=== PATIENT | female | born 1980 | race Caucasian/White ===

== ENCOUNTER 2019-11-19 14:08 | Outpatient (CLI) | payer OTHER, SELFPAY ==
--- NOTE | ~2019-11-19 | CT_ITS ---
EXAMINATION: CT abdomen pelvis w con DATE: 11/19/2019 14:57 INDICATION: Low abdominal pain. TECHNIQUE: Computed tomography (CT) of the abdomen and pelvis was performed with 100 mL Omnipaque 350 intravenous contrast. Automated exposure control and iterative reconstruction technique were employe d. The dose-length product was 1515.80 mGy-cm. COMPARISON: None. FINDINGS: The visualized portions of the lung bases are clear without pneumonia or pleural effusion. The heart size is normal. No pericardial effusion. The liver is normal. There are changes of cholecys tectomy. The spleen, pancreas, adrenal glands, and right kidney are normal. There is a 4 mm cyst in l eft kidney. There is a 3 mm stone in left kidney. 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 There are no dilated loops of bowel. The appendix is normal. There is trace pelvic ascites. Ther e are no pathologically enlarged lymph nodes. There is mild thoracic and lumbar spondylosis. IMPRESSION: 1. 3 mm nonobstructing left kidney stone. 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
== END 2019-11-19 14:09 | disposition home or self-care (01) ==
LOC: CHSIMG 14:10
PROVIDERS: PCP Family Medicine; Visit Provider Nurse Practitioner Family
DX: R10.9 Unspecified abdominal pain (principal)
CPT/HCPCS: 74177; Q9965

== ENCOUNTER 2019-11-21 01:55 | Day surgery (SDC) | payer OTHER, SELFPAY ==
[2019-11-14 09:52] VITALS: BMI 43.5
--- NOTE | 2019-11-19 10:23 | PM.IMHP ---
H&P: HPI History of Present Illness Chief complaint: pelvic pain Narrative: Yadira Phillip is a 39 year old female Status post hysterectomy and bilateral salpingectomy who is admitted for diagnostic laparoscopy. She has: 6 was then from hysterectomy and she has had pain when she has sex. She underwent an ultrasound which shows thick wall bowel adhesion to the vaginal cough but neither ovary could be seen. There was of free fluid well in light of her severe pelvic pain she has a laparoscopy and possible lysis adhesions. Risks and benefits were reviewed including but not exclusive of , aspiration Roller, bleeding transfusion, perforation to bowel, bladder, ureters, or other internal organs with need for open laparotomy. She was could her standing. She had all questions answered. She read the [employer] handout entitled laparoscopy. She asked to proceed. Review of Systems Review of Systems: All systems reviewed & are unremarkable except as noted in HPI and below PMFSH Family History Family History Father Hypertension Patient's father is in good health Family history of diabetes mellitus in first degree relative Mother Patient's mother is in good health Family history of gallbladder disease Sibling Patient's brother is in good health Grandparent Family history of malignant neoplasm of stomach Carcinoma of colon Other Asthma Family history of eczema Family history of malignant neoplasm of brain Family history of migraine headaches Social History Social History Alcohol intake: never Meds Home Medications and Allergies Home Medications Medication Instructions Recorded Confirmed Type citalopram 20 mg PO QPM 11/14/19 11/14/19 History hydrocodone-acetaminophen 1 tablet PO Q6H PRN 11/14/19 11/14/19 History levothyroxine 88 mcg PO QPM 11/14/19 11/14/19 History Allergies Allergy/AdvReac Type Severity Reaction Status Date / Time SKIN GLUE Allergy SKIN Uncoded 11/14/19 09:54 IRRITATION Exam Const: General: no acute distress Eyes: General: appearance normal, both eyes and all related structures Neck: Neck: supple and no JVD Thyroid: thyroid normal Resp: Effort & Inspection: normal respiratory effort Auscultation: clear to auscultation bilaterally Cardio: Rate: regular rate Rhythm: regular rhythm GI: Inspection: non-distended GI Palp: Yes Soft to palpation, No Tenderness to palpation present (GI) and No Guarding due to palpation present (GI) Auscultation: normal bowel sounds : General: Yes bladder normal to inspection External Female Exam: normal external appearance Speculum Exam - Cervix: Cervix absent Bimanual exam- vagina & uterus: uterus absent Bimanual Exam- Adnexa, other: tender Skin: General skin exam: no rashes or lesions noted Extrem: General: normal to inspection and no edema Psych: Mental Status: mental status grossly normal Affect: normal affect Assessment and Plan Additional Plan Impression: Pelvic pain of unknown cause Plan: Diagnostic laparoscopy
[2019-11-21] VITALS (7 sets, daily range): BP systolic 105–126; BP diastolic 60–86; PULSE 59–80; RESP 14–20; TEMP 36.1–36.6; O2SAT 92–99
[2019-11-21] MEDS: LACTATED RINGERS 1,000 ML 30 ML IV CONT ×2 (07:00→09:37)
--- NOTE | 2019-11-21 07:02 | WPDHPUPDATE1 ---
History and Physical Update Update Date/Time: 11/21/19 07:02 History and Physical has been reviewed, including an updated exam of the patient. There are NO changes in the patient's condition. Risks, benefits, and alternatives have been discussed and questions answered. Patient agrees to proceed with procedure.
--- NOTE | 2019-11-21 08:12 | P.PNAN_ITS ---
Anes - Initial Pre Proc Eval Procedure: Operation Date: 11/21/19 08:30 Proposed Procedures p Diagnostic Laparoscopy - Bjorn Cardenas MD Date/Time: 11/21/19 08:12 Surgeon: Bjorn Cardenas MD Pre Op Diagnosis: pelvic pain Patient Data Age: 39 Gender: F Height: 5 ft 6 in Weight: 123 kg Last Vital Signs Temp 36.6 C 11/21/19 07:00 Pulse 80 11/21/19 07:00 Resp 18 11/21/19 07:00 BP 123/76 11/21/19 07:00 Pulse Ox 99 11/21/19 07:00 Allergies Allergy/AdvReac Type Severity Reaction Status Date / Time SKIN GLUE Allergy SKIN Uncoded 11/21/19 07:35 IRRITATION Home Medications Medication Instructions Recorded Confirmed Type citalopram 20 mg PO QPM 11/14/19 11/14/19 History hydrocodone-acetaminophen 1 tablet PO Q6H PRN 11/14/19 11/14/19 History levothyroxine 88 mcg PO QPM 11/14/19 11/14/19 History hydrocodone-acetaminophen [[place]] 1 tablet PO Q4H PRN #30 tablet 11/21/19 Rx Patient hx anesthesia problems: none and other (slow to awaken) Family hx anesthesia problems: none PMFSH Past Medical History Medical History Hypothyroid Morbid obesity Family History Family History Father Hypertension Patient's father is in good health Family history of diabetes mellitus in first degree relative Mother Patient's mother is in good health Family history of gallbladder disease Sibling Patient's brother is in good health Grandparent Family history of malignant neoplasm of stomach Carcinoma of colon Other Asthma Family history of eczema Family history of malignant neoplasm of brain Family history of migraine headaches Social History Social History Alcohol intake: never Anes - Eval Final PreProcedure Day of Procedure 11/21/19 08:12 Patient weight: morbidly obese Heart: regular rate and rhythm Lungs: clear to auscultation Airway: Mallampati scale class II Neurological: alert and oriented Last oral intake: >/= 8 hours ASA classification: III Emergent: no Anesthetic plan: proceed Anesthesia type and monitoring: general ETT and standard monitoring Informed Consent: The patient's anesthetic plan and its attendant risks and benefits were discussed with the patient/family/POA. Questions were solicited and answers provided to the satisfaction of the patient/family/POA.
--- NOTE | 2019-11-21 09:23 | PM.PROC ---
Procedure Note - Detailed Date of procedure: 11/21/19 Pre-op diagnosis: pelvic pain Surgeon: Bjorn Cardenas MD Postop diagnosis: Endometriosis, pelvic pain pelvic adhesions vaginal last Procedure: Diagnostic laparoscopy, destruction of endometriosis, lysis of adhesions repair of vaginal laceration Anesthesia: General endotracheal Complications:none ebl:10 cc Findings: Absent uterus normal-appearing ovaries, pelvic adhesions, weakness of the central portion of vaginal cuff Description of procedure: The patient was prepped draped in the normal sterile fashion placed in dorsal lithotomy position. Under excellent general who gets seizures weighted speculum was placed post formed vagina. Sponge stick was placed. The bladder was draining clear urine. Gloves were changed. A supraumbilical incision made and the Veress needle passed in the abdomen. Abdomen was filled with CO2 gas [id number]. The 5mm trocar advanced under direct visualization assuring no injury. The patient placed in Trendelenburg and a suprapubic incision made. The 5mm trocar advanced under direct visualization assuring no injury. The above findings were seen. The adhesions were sharply dissected being careful to avoid injury to bladder or vaginal cuff. Small areas of endometriosis were seen on the vaginal cuff this was for documentation and then destroyed with 35 w per 2nd monopolar cautery. There appeared to be fair amount of weakness in central portion of vaginal cuff. At that point went to vaginal area. Two [id number] 0 Vicryl were placed to help support the vaginal cuff. This was watched robot assuring no injury to bladder etc. Irrigation internally was undertaken to clear. Anti-adhesive anterior was placed over the vaginal cuff. The lower site removed. The gas removed from the abdomen. The upper site removed. Incisions closed with 4 Monocryl. The patient tolerated the procedure well. All sponge, needle, instrument counts were correct. Blood loss was estimated at10cc. There were immediate complications
== END 2019-11-21 11:41 | disposition home or self-care (01) ==
PROVIDERS: PCP Family Medicine; Visit Provider Obstetrics & Gynecology
PROC: (CPT 49320; principal; 2019-11-21 08:30)
DX: N80.3 Endometriosis of pelvic peritoneum (principal); N73.6 Female pelvic peritoneal adhesions (postinfective); N89.8 Other specified noninflammatory disorders of vagina; R10.2 Pelvic and perineal pain; E03.9 Hypothyroidism, unspecified; E66.01 Morbid (severe) obesity due to excess calories; Z68.41 Body mass index [BMI] 40.0-44.9, adult
CPT/HCPCS: 58662; 57200; 36415; 86850; 86900; 86901; A9270; J0330; J1100; J2250; J2405; J2704; J2710; J3010; J7120

== ENCOUNTER 2020-09-15 11:29 | Outpatient (CLI) | payer OTHER, SELFPAY ==
--- NOTE | ~2020-09-15 | XR_ITS ---
EXAMINATION: XR knee RT 3V DATE: 09/15/2020 11:47 INDICATION: Right knee effusion. TECHNIQUE: 3 views of right knee were obtained. COMPARISON: None. FINDINGS: Bone alignment is normal. No fracture. There is mild tricompartmental osteoarthritis. No kn ee joint effusion. IMPRESSION: 1. Mild right knee osteoarthritis. 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
== END 2020-09-15 11:30 | disposition home or self-care (01) ==
PROVIDERS: PCP Family Medicine; Visit Provider Family Medicine
DX: M25.461 Effusion, right knee (principal)
CPT/HCPCS: 73562

== ENCOUNTER → 2021-03-19 00:38 | Outpatient (CLI) | payer OTHER, SELFPAY ==
[2021-03-19 21:20] LABS: SARS-CoV-2 RNA PCR Negative
== END ==
PROVIDERS: PCP Family Medicine; Visit Provider Internal Medicine Critical Care Medicine
DX: Z01.812 Encounter for preprocedural laboratory examination (principal); Z20.822 Contact with and (suspected) exposure to COVID-19
CPT/HCPCS: C9803; U0003; U0005

== ENCOUNTER 2021-03-22 10:51 | Outpatient (CLI) | payer OTHER, SELFPAY ==
--- NOTE | 2021-04-10 19:01 | WPDSLEEPSTUD ---
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 She has loud snoring. There is a family history of sleep apnea in her father, brother and aunts. She has a baby who does not sleep through the night, and this also contributes to her waking at night. She had a negative sleep study several years ago. This was performed because she was choking during the night. She occasionally awakens from sleep feeling short of breath. She does not awaken at night with heartburn, belching or coughing. She does not have trouble sleeping with a cold. She occasionally gasps for breath at night. She does not have breathing problems at night observed by others. She does not sweat excessively at night. She does not notice her heart pounding or beating irregularly at night. She rarely falls asleep during the day, never involuntarily and never while driving. She frequently has loss of muscle tone with strong emotion, which can be seen with sleep deprivation. She rarely has morning headaches. Denies nightmares; frequently recalls dreams. Rarely has racing thoughts, feelings of sadness, depression, or anxiety.Frequently has muscular tension. She does not notice parts of her body jerking, does not kick at night. She rarely has crawling and aching feelings in her legs. She does not have leg pain at night. She occasionally has morning jaw pain and occasionally grinds her teeth during sleep. She rarely is bothered by pain in salome day. She is not wakened by pain at night, does not wake up feeling stiff in the morning, does not wake with sore achy muscles or pain in the spine. Normal bedtime: 1:00 a.m.,falls asleep quickly, wakes 2-3 times during the night to urinate, feed her baby, and falls asleep within 5-10 minutes after returning to bed. She wakes at 8:00 am.; rarely naps, and naps are not refreshing. She feels better in the evening compared to other times of the day. Habits: Tobacco: quit 16 years ago. No caffeine, alcohol or recreational drugs. [facility] Past Medical History Medical History (Updated 04/11/21 @ 01:54 by Amarilis Bell MD) Anxiety Hypothyroid Morbid obesity Family History Family History Father Hypertension Patient's father is in good health Family history of diabetes mellitus in first degree relative Mother Patient's mother is in good health Family history of gallbladder disease Sibling Patient's brother is in good health Grandparent Family history of malignant neoplasm of stomach Carcinoma of colon Other Asthma Family history of eczema Family history of malignant neoplasm of brain Family history of migraine headaches Social History Social History Alcohol intake: never Medications Home Medications Medication Instructions Recorded Confirmed Type citalopram 20 mg PO QPM 11/14/19 11/14/19 History hydrocodone-acetaminophen 1 tablet PO Q6H PRN 11/14/19 11/14/19 History levothyroxine 88 mcg PO QPM 11/14/19 11/14/19 History hydrocodone-acetaminophen [[place]] 1 tablet PO Q4H PRN #30 tablet 11/21/19 Rx Sleep Procedure This test was performed using the [employer] multiple channel system including EOG, EEG, submental EMG, EKG, nasal and oral airflow using thermistors and nasal pressure sensors, chest and abdominal belts for body position data, and pulse oximetry. Video monitoring was also performed. The study was scored using CMS guidelines. Sleep Architecture Recording time 456.4 minutes. Sleep duration 356.8 minutes. Sleep efficiency 78.2%. Sleep latency 34.6 minutes.
[2021-04-11 02:06] VITALS: BMI 44.9
== END 2021-03-23 06:44 | disposition home or self-care (01) ==
LOC: ANHCSM 10:51
PROVIDERS: PCP Family Medicine; Visit Provider Family Medicine
DX: G47.33 Obstructive sleep apnea (adult) (pediatric) (principal)
CPT/HCPCS: 95810

== ENCOUNTER 2021-11-16 00:46 | Emergency (ER) | payer OTHER, SELFPAY ==
[2021-11-16 00:48] VITALS: BP 153/95; PULSE 98; RESP 18; TEMP 36.8; O2SAT 100
[2021-11-16] MEDS: diphenhydrAMINE HCl INJ 50 MG/ML VIAL 25 MG IM (01:24)
[2021-11-16] MEDS: FAMOTIDINE 20 MG TABLET PO (01:32)
[2021-11-16] MEDS: methylPREDNISolone SOD SUCC 40 MG VIAL IV PUSH (01:33)
--- NOTE | 2021-11-16 02:21 | ED.ALLEREA ---
HPI - Allergic Reaction General Chief complaint: Allergic Reaction Stated complaint: rash Time Seen by Provider: 11/16/21 01:07 Source: patient Mode of arrival: ambulatory Limitations: no limitations History of Present Illness HPI narrative: 41-year-old female presents today with complaints of rash that started about 9 PM tonight. Patient rash is pruritic. Denies using any new soaps, lotions, detergents, new foods, or anything different. Patient denies history of similar symptoms. Patient denies shortness of breath, difficulty in breathing, or difficulty swallowing. Related Data Home Medications Medication Instructions Recorded Confirmed citalopram 20 mg PO QPM 11/14/19 11/14/19 hydrocodone-acetaminophen 1 tablet PO Q6H PRN 11/14/19 11/14/19 levothyroxine 88 mcg PO QPM 11/14/19 11/14/19 Allergies Allergy/AdvReac Type Severity Reaction Status Date / Time SKIN GLUE Allergy SKIN Uncoded 11/21/19 07:35 IRRITATION Review of Systems Review of Systems: CONSTITUTIONAL: Denies fever, chills, or sweats. EYES: Denies visual changes, redness, or discharge. ENT: Denies rhinorrhea, congestion, sore throat, or otalgia. CARDIOVASCULAR: Denies chest pain, palpitations, or edema. RESPIRATORY: Denies cough or dyspnea. GASTROINTESTINAL: Denies abdominal pain, nausea, vomiting, or diarrhea. GENITOURINARY: Denies dysuria or hematuria. SKIN: Pruritic rash. MUSCULOSKELETAL: Denies back pain, joint pain, or myalgia. NEUROLOGIC: Denies headache, numbness, dizziness, or weakness. PSYCHIATRIC: Denies anxiety or depression. [facility] Past Medical History Medical History Anxiety Hypothyroid Morbid obesity Family History Family History Father Hypertension Patient's father is in good health Family history of diabetes mellitus in first degree relative Mother Patient's mother is in good health Family history of gallbladder disease Sibling Patient's brother is in good health Grandparent Family history of malignant neoplasm of stomach Carcinoma of colon Other Asthma Family history of eczema Family history of malignant neoplasm of brain Family history of migraine headaches Social History Social History (Reviewed 11/16/21 @ 02:22 by OTTONIEL Polo Alcohol intake: never Exam Narrative: GENERAL: Well-appearing, well-nourished, and in no acute distress. HEAD: Normocephalic, atraumatic. EYES: PERRLA and EOMI. ENT: Nares clear, no rhinorrhea or epistaxis. Mucous membranes moist. Oropharynx without swelling, tonsillar hypertrophy exudate or other lesions. Bilateral TMs pearly gillespie nonbulging NECK: Supple. No adenopathy or masses. No carotid bruits or JVD CHEST: Clear to auscultation. No respiratory distress. No wheezes rales or rhonchi HEART: Regular rate and rhythm. No murmur heard. Normal peripheral pulses. ABDOMEN: Soft, nontender, nondistended, normal active bowel sounds. EXTREMITIES: Normal range of motion. No edema. SKIN: Wheals noted to chest, bilateral arms, back, buttocks, and neck. NEURO: No focal deficits. Alert and oriented x3. PSYCH: Normal mood and affect. Course Course Emergency Course: Patient feeling better. Ready for discharge. Patient with appointment with primary doctor at 11 today. Reevaluation(s) Reevaluation #1: Improvement noted to itching and rash has decreased in size. Date: 11/16/21 Time: 02:24 Vital Signs Vital signs: Vital Signs Temperature 36.8 C 11/16/21 00:48 Pulse Rate 98 11/16/21 00:48 Respiratory Rate 18 11/16/21 00:48 Blood Pressure 153/95 H 11/16/21 00:48 Pulse Oximetry 100 11/16/21 00:48 Temperature 36.8 C 11/16/21 02:51 Pulse Rate 72 11/16/21 02:51 Respiratory Rate 18 11/16/21 02:51 Blood Pressure 142/68 H 11/16/21 02:51 Pulse Oximetry 99 11/16/21 02:51 MDM - Allergic Reaction Differential Diagnosis Differen
[2021-11-16 02:51] VITALS: BP 142/68; PULSE 72; RESP 18; TEMP 36.8; O2SAT 99
== END 2021-11-16 02:52 | disposition home or self-care (01) ==
PROVIDERS: Emergency Provider Nurse Practitioner Family; PCP Family Medicine
DX: L50.9 Urticaria, unspecified (principal); F41.9 Anxiety disorder, unspecified; E03.9 Hypothyroidism, unspecified; E66.01 Morbid (severe) obesity due to excess calories; Z68.42 Body mass index [BMI] 45.0-49.9, adult
CPT/HCPCS: 96372; 96374; 99284; A9270; J1200; J2920

== ENCOUNTER 2021-11-16 11:43 | Outpatient (CLI) | payer OTHER, SELFPAY ==
--- NOTE | ~2021-11-16 | XR_ITS ---
EXAMINATION: XR chest 2V EXAM DATE: 11/16/2021 12:06 INDICATION: Cough X1.5MO,Tickle In Throat,Wheezing . TECHNIQUE: Frontal and lateral projections of the chest obtained and reviewed. There is no prior mariya dy for comparison. FINDINGS: The lungs are clear. There are no pleural effusions. The cardiomediastinal silhouette is within normal limits. There is no pneumothorax suspected. The bones and soft tissues are unremarkab le. There are cholecystectomy clips. IMPRESSION: No acute cardiopulmonary findings. 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
== END 2021-11-16 11:44 | disposition home or self-care (01) ==
LOC: CHSIMG 11:44
PROVIDERS: PCP Family Medicine; Visit Provider Family Medicine
DX: R05.9 Cough, unspecified (principal)
CPT/HCPCS: 71046

== ENCOUNTER 2022-02-28 00:29 | Day surgery (SDC) | payer OTHER, SELFPAY ==
--- NOTE | 2022-02-20 14:40 | PC.NURSE ---
Report to the Outpatient Waiting Room, entrance under the green pavilion located off [facility], at time 0600_ on date _02/28/22__. OR Time: 0745_. - You and your visitor will be asked a series of questions to screen for COVID 19 for your protection. - Only one visitor is allowed at this time. - The patient visitor is requested to leave or wait in car when not with patient. - A mask is required within the hospital. Patients may have clear liquids (water, carbonated beverages, clear teas, apple juice) until 3 hours prior to surgery with a maximum of 20 ounces. - No food from midnight until time of surgery - Infants may have breast milk until 4 hours before surgery, infant formula 6 hours prior to surgery. - Children will be allowed to drink immediately following surgery. If applicable, please bring a bottle or sippy cup to assist with drinking. Juice, water, soda, and popsicles are readily available. For infants on formula, please bring formula the day of surgery. Pacifiers are allowed. Take the following medications with a SIP of water the morning of surgery: _Synthroid___ Medications to discontinue per physician __vitamins and supplements _3 days prior___ Date to take last dose Please no make-up, nail senegalese, hairspray, perfume, deodorant, or body powder the day of surgery. No jewelry (including any body piercings) or valuables the day of surgery, leave them at home. Please take a shower or bath the night before, or the morning of, surgery with an antibacterial soap. Wear comfortable, loose fitting clothing. Children are encouraged to wear pajamas. - Jewelry must be removed prior to entering the operating room. Rings and piercings that are not removed may be cut off. - The hospital will not accept responsibility for valuables. - Please leave all valuables, including medications, at home the day of surgery. If you are going home after surgery, a licensed auto carrier driver must drive you home. - NO public transportation without another adult. - We recommend that an adult stay with you for 24 hours following discharge. - We also recommend that you do not drive, make important decision, drink alcoholic beverages, or take any drugs that were not prescribed by your health care provider for at least 24 hours after your discharge time. For Pediatric surgeries, we recommend two adults accompany the child home (only one inside the building at this time). Follow any additional instructions given to you from your surgeon. If you or anyone in your household have experienced Covid symptoms in the past week, please notify your surgeon or the nurse liaison at the phone number below for possible testing. Telephone instructions given to _patient__and asked if any additional questions and then verbalized understanding. Patient advised to call surgeon office or pre surgery nurse liaison [phone] if any additional questions.
[2022-02-20 14:53] VITALS: BMI 46.7
--- NOTE | 2022-02-27 09:08 | PM.IMHP ---
H&P: HPI History of Present Illness Date/Time: 02/27/22 09:08 Chief Complaint: Nasal obstruction nasopharyngeal cyst eustachian tube dysfunction bilaterally bilateral recurrent on chronic otitis media Narrative: patient presents for planned surgical procedures no change in symptoms no change in history Review of Systems Review of Systems: All systems reviewed & are unremarkable except as noted in HPI and below PMFSH Past Medical History Medical History Anxiety Hypothyroid Morbid obesity Family History Family History Father Hypertension Patient's father is in good health Family history of diabetes mellitus in first degree relative Diabetes mellitus Mother Patient's mother is in good health Family history of gallbladder disease Sibling Patient's brother is in good health Hypertension Grandparent Family history of malignant neoplasm of stomach Carcinoma of colon Diabetes mellitus Son Asthma Son Asthma Grandparent Diabetes mellitus Other Family history of eczema Family history of malignant neoplasm of brain Family history of migraine headaches Social History Social History Smoking packs per day: 0.25 Smoking cigarettes per day: 5.0 Years smoked: 7 Smoking pack-years: 1.75 Smoking status: Former smoker Tobacco type: cigarettes Second hand tobacco smoke exposure: Yes Additional smoking assessment comments: 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 Alcohol intake: former Alcohol use details: pt stated 13 years ago Substance use: never Substance use type: does not use Last use: 2003 Living arrangements: with family Spiritual care concerns: No Meds Home Medications and Allergies Home Medications Medication Instructions Recorded Confirmed Type citalopram 20 mg tablet 20 mg PO QPM 11/14/19 02/07/22 History levothyroxine 112 mcg capsule 112 mcg PO DAILY 01/10/22 02/07/22 History Allergies Allergy/AdvReac Type Severity Reaction Status Date / Time amoxicillin [From Augmentin] Allergy Unknown Vomiting Verified 02/20/22 14:28 clavulanic acid Allergy Unknown Unknown Verified 02/07/22 07:43 [From Augmentin] SKIN GLUE Allergy SKIN Uncoded 02/07/22 07:43 IRRITATION Exam Eyes: Other: ears fluid bilaterally nasal exam normal upfront anyways. Normal face normal cranial nerve normal neck exam no lymphadenopathy normal exam otherwise normal eye exam. Assessment and Plan Assessment and plan (1) PND (post-nasal drip): Code(s): R09.82 - Postnasal drip Status: Acute Assessment and Plan: Plan is for the OR nasal endoscopy excision of cyst will need micro debrider will need Chidi is will need 0 degree scope will need suction Bovie.? Also T-tube insertion bilaterally.? Risks discussed risks discussed including bleeding infection CSF leak brain damage blindness change in vision damage to any any structure above the clavicles damage to any structure during induction and remains of anesthesia.? Patient voiced understanding and agreed. (2) Otitis media of both ears: Code(s): H66.93 - Otitis media, unspecified, bilateral Status: Acute (3) Thornwaldt's cyst: Code(s): J39.2 - Other diseases of pharynx Status: Acute (4) Acute dysfunction of both eustachian tubes: Code(s): H69.83 - Other specified disorders of Eustachian tube, bilateral Status: Acute
--- NOTE | 2022-02-27 12:40 | WPDANESEPPF ---
Anes - Initial Pre Proc Eval Procedure: Operation Date: 02/28/22 07:45 Proposed Procedures p Bilateral Myringotomy, Insertion Of Tubes - Otilio Valadez MD s Excision Nasopharyngeal Cyst - Otilio Valadez MD Date/Time: 02/27/22 12:40 Surgeon: Otilio Valadez MD Pre Op Diagnosis: chronic otitis media, nasopharyngeal cyst Patient Data Age: 41 Gender: F Height: 1.68 m Weight: 131.5 kg Allergies Allergy/AdvReac Type Severity Reaction Status Date / Time amoxicillin [From Augmentin] Allergy Intermediate Vomiting Verified 02/28/22 06:17 clavulanic acid Allergy Intermediate Vomiting Verified 02/28/22 06:17 [From Augmentin] SKIN GLUE Allergy Mild SKIN Uncoded 02/28/22 06:17 IRRITATION Home Medications Medication Instructions Recorded Confirmed Type citalopram 20 mg tablet 20 mg PO QPM 11/14/19 02/28/22 History levothyroxine 112 mcg capsule 112 mcg PO DAILY 01/10/22 02/28/22 History Patient hx anesthesia problems: none Family hx anesthesia problems: none Results Review: All pre-operative results and documents have been reviewed as part of the pre-operative evaluation. [facility] Past Medical History Medical History (Updated 02/07/22 @ 16:43 by Otilio Valadez MD) Anxiety Hypothyroid Morbid obesity Surgical History Surgical History (Updated 02/27/22 @ 12:40 by Sherman Ivy DO) History of cholecystectomy Family History Family History Father Hypertension Patient's father is in good health Family history of diabetes mellitus in first degree relative Diabetes mellitus Mother Patient's mother is in good health Family history of gallbladder disease Sibling Patient's brother is in good health Hypertension Grandparent Family history of malignant neoplasm of stomach Carcinoma of colon Diabetes mellitus Son Asthma Son Asthma Grandparent Diabetes mellitus Other Family history of eczema Family history of malignant neoplasm of brain Family history of migraine headaches Social History Social History Smoking packs per day: 0.25 Smoking cigarettes per day: 5.0 Years smoked: 7 Smoking pack-years: 1.75 Smoking status: Former smoker Tobacco type: cigarettes Second hand tobacco smoke exposure: Yes Additional smoking assessment comments: pt worked in a [employer] Alcohol intake: former Alcohol use details: pt stated 13 years ago Substance use: never Substance use type: does not use Last use: 2003 Living arrangements: with family Spiritual care concerns: No Anes - Eval Final PreProcedure Day of Procedure 02/27/22 12:40 Patient weight: morbidly obese Heart: regular rate and rhythm Lungs: clear to auscultation Airway: Mallampati scale class II Neurological: alert and oriented Last oral intake: >/= 8 hours ASA classification: III Emergent: no Anesthetic plan: proceed Anesthesia type and monitoring: general ETT and standard monitoring Results Review: All pre-operative results and documents have been reviewed as part of the pre-operative evaluation. Informed Consent: The patient's anesthetic plan and its attendant risks and benefits were discussed with the patient/family/POA. Questions were solicited and answers provided to the satisfaction of the patient/family/POA.
[2022-02-28] VITALS (8 sets, daily range): BP systolic 126–157; BP diastolic 71–100; PULSE 51–73; RESP 12–20; TEMP 36.4–36.5; O2SAT 94–100
[2022-02-28] MEDS: ACETAMINOPHEN 500 MG TABLET 1000 MG PO (06:20)
[2022-02-28] MEDS: LACTATED RINGERS 1,000 ML 30 ML IV CONT ×2 (06:29→08:50)
--- NOTE | 2022-02-28 07:18 | WPDHPUPDATE1 ---
History and Physical Update Update Date/Time: 02/28/22 07:18 History and Physical has been reviewed, including an updated exam of the patient. There are NO changes in the patient's condition. Risks, benefits, and alternatives have been discussed and questions answered. Patient agrees to proceed with procedure.
[2022-02-28] MEDS: ceFAZolin 3 GM/D5W 100 ML 100 ML IVPB (07:24)
[2022-02-28] MEDS: CIPROFLOXACIN HCL 0.3% OP SOLN 2.5 ML BTL 4 DROP EACH EAR (07:40)
[2022-02-28] MEDS: OXYMETAZOLINE HCL 0.05% NAS 15 ML BTL (*BKC) 1 SPRAY NASAL (07:41)
--- NOTE | 2022-02-28 08:27 | W.PM.PROC2 ---
Procedure Note - Detailed Date of Procedure 02/28/22 Pre-op Diagnosis chronic otitis media, nasopharyngeal cyst, adenoid hypertrophy Post-op Diagnosis Same Procedure Performed A transnasal endoscopy with outfracture of inferior turbinates for access resection of adenoid tissue/nasopharyngeal cyst/marsupialization, bilateral myringotomy with T-tube insertion Surgeon Otilio Valadez MD Anesthesia General Indications See above Findings Copious fluid in the ears successfully drained T tubes look great gigantic what appeared to be adenoid fronds sent for biopsy removed taken off the talha bilaterally minimal bleeding following procedure. Description of Procedure Consent verified patient identified in preop. Patient brought operating room. Time-out performed. General anesthesia induced. Endotracheal tube secured taped the left lower lip. Patient prepped and draped for procedure 2nd time-out performed. Afrin-soaked pledgets placed nasal passages right septal deviation noted. Progreso microscope utilized to perform this bilateral procedure myringotomy made inferior anterior quadrant T-Tube placed after the suctioning of copious amounts of yellow motor oil type fluid serous. This was done bilaterally no complications real bleeding drops placed. 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 These were biopsied sent fresh. The entire adenoid pad or lesion was debrided using microdebrider bleeding was controlled with suction Bovie electrocautery at a setting of 10 in 15. Afrin-soaked pledgets were then placed and removed endoscopy revealed that the talha were patent lesion was minimally using no active bleeding or pumping per se. Total blood loss 25 cc. This marked procedure. Drip pad placed. Care the patient given Anesthesiology and eventually taken to PACU. No complications again total blood loss probably 20-25 cc. Estimated Blood Loss 25 Drains No Packing No Pathology Yes Complications No immediate complications Condition Stable Disposition PACU
[2022-02-28] MEDS: fentaNYL CITRATE INJ (*CRX) 100 MCG/2 ML VIAL 25 MCG IV PUSH ×3 (08:50→08:59)
[2022-02-28] MEDS: oxyCODONE HCL (*CRX) 5 MG TAB IR PO (09:21)
== END 2022-02-28 10:05 | disposition home or self-care (01) ==
PROVIDERS: PCP Family Medicine; Visit Provider Otolaryngology
PROC: (CPT 69436; principal; 2022-02-28 07:45)
PROC: (CPT 30520; 2022-02-28 07:45)
DX: H66.93 Otitis media, unspecified, bilateral (principal); J39.2 Other diseases of pharynx; J35.2 Hypertrophy of adenoids; R09.82 Postnasal drip; H69.83 Other specified disorders of Eustachian tube, bilateral; E03.9 Hypothyroidism, unspecified; F41.9 Anxiety disorder, unspecified; E66.01 Morbid (severe) obesity due to excess calories; Z68.42 Body mass index [BMI] 45.0-49.9, adult; Z87.891 Personal history of nicotine dependence
CPT/HCPCS: 69436; 30130; 30999; 88184; 88304; 88333; 88341; 88342; 88364; 88365; A9270; J0330; J0690; J1100; J2250; J2405; J2704; J3010; J7120

== ENCOUNTER 2022-05-01 11:41 | Outpatient (CLI) | payer OTHER, SELFPAY ==
[2022-05-01 12:27] LABS: Thyroid Stimulating Hormone 6.28 uIU/mL (0.36-3.74)
[2022-05-01 12:42] LABS: SARS-CoV-2 RNA PCR Negative (Negative)
[2022-05-01 13:54] LABS: HIV 1 P24 AG Negative (Negative); HIV 1/2 AB Negative (Negative)
[2022-05-03 16:34] LABS: RPR Screen Non-Reactive (Non-Reactive)
== END 2022-05-01 11:42 | disposition home or self-care (01) ==
LOC: CHSLAB 11:44
PROVIDERS: PCP Family Medicine; Visit Provider Family Medicine
DX: Z20.2 Contact with and (suspected) exposure to infections with a predominantly sexual mode of transmission (principal); Z20.822 Contact with and (suspected) exposure to COVID-19
CPT/HCPCS: 36415; 84443; 86592; 86703; 87491; 87591; 87661; C9803; U0003; U0005

== ENCOUNTER 2022-07-18 14:19 | Emergency (ER) | payer OTHER, SELFPAY ==
--- NOTE | ~2022-07-18 | XR_ITS ---
XR wrist LT min 3V DATE: 07/18/2022 14:39 INDICATION: Fall. Left wrist injury, pain TECHNIQUE: 4 views COMPARISON: None FINDINGS: No fracture or dislocation, periosteal reaction or bone destruction. No erosive change or c hondrocalcinosis. There is mild osteoarthritis at the first carpometacarpal joint. IMPRESSION: No fracture or dislocation Mild osteoarthritis at first carpal metacarpal joint Reviewed, dictated and finalized at location A. 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
[2022-07-18 14:31] VITALS: BP 125/81; PULSE 87; RESP 16; TEMP 36.9; O2SAT 99
--- NOTE | 2022-07-18 14:51 | ED.UPPEXIN ---
HPI - Extremity Injury (Upper) General Chief Complaint: Extremity Injury, Upper Stated Complaint: Fall Time Seen by Provider: 07/18/22 14:51 Source: patient, RN notes reviewed and old records reviewed Mode of arrival: ambulatory Limitations: no limitations History of Present Illness HPI narrative: 42-year-old female presents to the [facility] with complaints fall, left dorsal hand contusion and pain as well as left wrist pain. Patient states that she tripped and fell landing on her hand. Did not hit head. No loss of consciousness. Related Data Home Medications Medication Instructions Recorded Confirmed citalopram 20 mg tablet 20 mg PO QPM 11/14/19 07/18/22 levothyroxine 112 mcg capsule 112 mcg PO DAILY 01/10/22 07/18/22 Allergies Allergy/AdvReac Type Severity Reaction Status Date / Time amoxicillin [From Augmentin] Allergy Intermediate Vomiting Verified 07/18/22 14:39 clavulanic acid Allergy Intermediate Vomiting Verified 06/20/22 10:22 [From Augmentin] SKIN GLUE Allergy Mild SKIN Uncoded 06/20/22 10:22 IRRITATION Review of Systems Review of Systems: All systems reviewed & are unremarkable except as noted in HPI and below Constitutional: Constitutional: Reports no additional constitutional complaints, Denies chills and Denies fever(s) Eyes: Eyes: Reports no additional eye complaints ENT: Reports system reviewed and no additional complaints, except as documented Cardiovascular: Cardiovascular: Reports no additional cardiovascular complaints Respiratory: Respiratory: Reports no additional respiratory complaints Gastrointestinal: Gastrointestinal: Reports no additional gastrointestinal complaints Musculoskeletal: Musculoskeletal: Reports as per HPI Integumentary/Breasts: Skin/Breast: Reports system reviewed and no additional complaints, except as docu Neurologic: Reports system reviewed and no additional complaints, except as documented Psychiatric: Psychiatric: Reports no additional psychiatric complaints Allergic/Immunologic: Allergic/Immunologic: Reports no additional allergic/immunologic complaints [facility] Past Medical History Medical History Anxiety Hypothyroid Morbid obesity Surgical History Surgical History History of cholecystectomy Family History Family History Father Hypertension Patient's father is in good health Family history of diabetes mellitus in first degree relative Diabetes mellitus Mother Patient's mother is in good health Family history of gallbladder disease Sibling Patient's brother is in good health Hypertension Grandparent Family history of malignant neoplasm of stomach Carcinoma of colon Diabetes mellitus Son Asthma Son Asthma Grandparent Diabetes mellitus Other Family history of eczema Family history of malignant neoplasm of brain Family history of migraine headaches Social History Social History Smoking packs per day: 0.25 Smoking cigarettes per day: 5.0 Years smoked: 7 Smoking pack-years: 1.75 Smoking status: Former smoker Tobacco type: cigarettes Second hand tobacco smoke exposure: Yes Additional smoking assessment comments: pt worked in a smoking [employer] Alcohol intake: former Alcohol use details: pt stated 13 years ago Substance use: never Substance use type: does not use Last use: 2003 Gender identity (if verbalized by the patient): Female Sexual Orientation (if Verbalized by the Patient): Straight or Heterosexual Spiritual care concerns: No Comments At the time of my signature, I reviewed and agree with the nursing past medical, surgical, social, and family history. There is no relevant family history pertinent to the patient complaint. Exam Const: General: healthy a
== END 2022-07-18 15:14 | disposition home or self-care (01) ==
PROVIDERS: Emergency Provider Nurse Practitioner; PCP Family Medicine
DX: S60.222A Contusion of left hand, initial encounter (principal); W01.0XXA Fall on same level from slipping, tripping and stumbling without subsequent striking against object, initial encounter; E03.9 Hypothyroidism, unspecified; F41.9 Anxiety disorder, unspecified; E66.01 Morbid (severe) obesity due to excess calories; Z68.42 Body mass index [BMI] 45.0-49.9, adult
CPT/HCPCS: 73110; 99213; G0463

== ENCOUNTER 2023-03-24 14:28 | Emergency (ER) | payer OTHER, SELFPAY ==
--- NOTE | ~2023-03-24 | XR_ITS ---
EXAMINATION: XR lumbar spine 2-3V DATE: 03/24/2023 16:02 INDICATION: Low back pain. TECHNIQUE: 3 views of lumbar spine were obtained. COMPARISON: CT abdomen and pelvis 11/19/2019 FINDINGS: Bone alignment is normal. Vertebral body heights are normal. Intervertebral disc heights ar e normal. There are endplate osteophytes at most levels. There is multilevel mild facet joint osteoar thritis. IMPRESSION: 1. Mild lumbar spondylosis. Reviewed, dictated and finalized at location E. IMPRESSION: 1. Mild lumbar spondylosis.
[2023-03-24 14:44] VITALS: BP 136/87; PULSE 87; RESP 18; TEMP 36.2; O2SAT 99
--- NOTE | 2023-03-24 14:50 | ECG_ITS ---
Measurements Intervals [place] Rate: 80 P: 0 AL: 144 QRS: 15 QRSD: 90 T: 22 QT: 363 QTc: 421 Interpretive Statements SINUS RHYTHM NORMAL ECG NO PREVIOUS ECG AVAILABLE FOR COMPARISON Electronically Signed On 03-24-2023 18:24:28 CDT by Pravin Black D.O.
--- NOTE | 2023-03-24 15:57 | ED.GENADULT ---
HPI - General Adult General Chief complaint: Back Pain/Injury Stated complaint: back pain Time Seen by Provider: 03/24/23 15:20 History of Present Illness HPI narrative: Patient is a 42-year-old female who presents ER with low back pain. Ongoing for the last 2 days. Woke up with pain. No radiation down the leg. No lower extremity numbness or tingling. No difficulty with urination/defecation. Denies fevers or chills or sweats. Has not tried any modifying medications. Related Data Home Medications Medication Instructions Recorded Confirmed citalopram 20 mg tablet 20 mg PO QPM 11/14/19 07/18/22 levothyroxine 112 mcg capsule 112 mcg PO DAILY 01/10/22 07/18/22 Allergies Allergy/AdvReac Type Severity Reaction Status Date / Time amoxicillin [From Augmentin] Allergy Intermediate Vomiting Verified 07/18/22 14:39 clavulanic acid Allergy Intermediate Vomiting Verified 06/20/22 10:22 [From Augmentin] SKIN GLUE Allergy Mild SKIN Uncoded 06/20/22 10:22 IRRITATION Review of Systems Constitutional: Constitutional: Denies chills and Denies fever(s) Gastrointestinal: Gastrointestinal: Denies abdominal pain, Denies nausea and Denies vomiting Genitourinary: Genitourinary: Denies nocturia, Denies dysuria and Denies flank pain Musculoskeletal: Musculoskeletal: Reports back pain, Denies arthralgias and Denies joint swelling Neurologic: Denies focal weakness and Denies numbness PMFSH Past Medical History Medical History Anxiety Hypothyroid Morbid obesity Surgical History Surgical History History of cholecystectomy Family History Family History Father Hypertension Patient's father is in good health Family history of diabetes mellitus in first degree relative Diabetes mellitus Mother Patient's mother is in good health Family history of gallbladder disease Sibling Patient's brother is in good health Hypertension Grandparent Family history of malignant neoplasm of stomach Carcinoma of colon Diabetes mellitus Son Asthma Son Asthma Grandparent Diabetes mellitus Other Family history of eczema Family history of malignant neoplasm of brain Family history of migraine headaches Social History Social History Smoking packs per day: 0.25 Smoking cigarettes per day: 5.0 Years smoked: 7 Smoking pack-years: 1.75 Smoking status: Former smoker Tobacco type: cigarettes Second hand tobacco smoke exposure: Yes Additional smoking assessment comments: pt worked in a smoking [employer] Alcohol intake: former Alcohol use details: pt stated 13 years ago Substance use: never Substance use type: does not use Last use: 2003 Living arrangements: with family Gender identity (if verbalized by the patient): Female Sexual Orientation (if Verbalized by the Patient): Straight or Heterosexual Spiritual care concerns: No Exam Narrative: GENERAL: Well-appearing, well-nourished, and in no acute distress. HEAD: Normocephalic, atraumatic. ENT: Mucous membranes moist. CHEST: Clear to auscultation. No respiratory distress. HEART: Regular rate and rhythm. Normal peripheral pulses. Back: Mild tenderness of the paraspinal musculature at level of L3. No reproducible midline tenderness. No step-offs. No abrasions/bruises EXTREMITIES: Normal range of motion. No edema. NEURO: Alert and oriented x3. PSYCH: Normal mood and affect. Course Course Emergency Course: Only mild improvement with Toradol and Valium. Patient informed of x-ray results. Discharge home with Medrol Dosepak and muscle relaxers. Recommend follow-up with PCP. Patient verbalized understanding. Vital Signs Vital signs: Vital Signs Temperature 97.2 F L 03/24/23 14:44 Pulse Rate 87 0
[2023-03-24] MEDS: KETOROLAC 30 MG/ML VIAL (*BKC) IV PUSH (17:39)
[2023-03-24] MEDS: diazePAM INJ (*CRX) 10 MG/2 ML SYRINGE 5 MG IV PUSH (17:40)
== END 2023-03-24 19:47 | disposition home or self-care (01) ==
PROVIDERS: Emergency Provider Emergency Medicine; PCP Family Medicine
DX: M54.50 Low back pain, unspecified (principal); E03.9 Hypothyroidism, unspecified; Z87.891 Personal history of nicotine dependence
CPT/HCPCS: 72100; 93005; 96374; 96375; 99284; J1885; J3360

== ENCOUNTER 2023-03-26 16:09 | Outpatient (CLI) | payer OTHER, SELFPAY ==
--- NOTE | ~2023-03-26 | XR_ITS ---
Thoracic spine: Clinical Indication: Back pain AP and lateral views were performed. No fracture is seen. There is normal alignment of the vertebrae. The intervertebral disc spaces appe ar normal. Paravertebral soft tissues appear normal. Impression: No significant abnormalities noted. Reviewed, dictated and finalized at [facility]. Impression: No significant abnormalities noted.
== END 2023-03-26 16:10 | disposition home or self-care (01) ==
PROVIDERS: PCP Family Medicine; Visit Provider Family Medicine
DX: M54.9 Dorsalgia, unspecified (principal)
CPT/HCPCS: 72072

== ENCOUNTER 2023-04-10 10:28 | Outpatient (CLI) | payer OTHER, SELFPAY ==
--- NOTE | 2023-04-12 20:42 | P.PCNHOL_ITS ---
Holter/Event Monitor Holter/Event Monitor Date of procedure: 04/12/23 Holter/Event Procedure: 24 Hr Holter Monitor Diagnosis: Palpitations Indications: 43-year-old female with palpitations Image/Tracing Quality: Good Finding: The patient was monitored for 24 hours. The underlying rhythm was sinus with an average heart rate of 85 BPM (range 56-143 BPM). Rare PVCs were seen with a 0.5% burden. Only 17 APCs were seen. There is no atrial fibrillation, SVT, ventricular tachycardia, AV block or pauses. The patient noted a thump in her throat while driving at 10:56 a.m. at which time she was in sinus rhythm rate 86 ppm. She had 3 other rhythm strips submitted for similar symptoms, and they all showed sinus rhythm heart rates 78- 83 ppm. Conclusion: Fairly unremarkable Holter monitor, with rare PVCs. Patient's four symptoms correlated with sinus rhythm.
== END 2023-04-10 10:29 | disposition home or self-care (01) ==
LOC: ANHCARD 10:29
PROVIDERS: PCP Family Medicine; Visit Provider Family Medicine
DX: I49.8 Other specified cardiac arrhythmias (principal); R00.2 Palpitations
CPT/HCPCS: 93225; 93226

== ENCOUNTER 2023-09-25 23:20 | Emergency (ER) | payer OTHER, SELFPAY ==
--- NOTE | ~2023-09-25 | CT_ITS ---
CT of the Abdomen and Pelvis: Indication: Abdominal pain Technique: 2.5 mm axial scans were obtained through the abdomen and pelvis following intravenous adm inistration of 100 cc of Omnipaque 350. Dose reduction technique was used on this scan by utilizing a utomated exposure control and iterative reconstruction technique. The dose-length product (DLP) was 1 634.75 mGy-cm. COMPARISON: 11/19/2019 Findings: Scans through the lung bases are unremarkable. The liver, spleen, pancreas, adrenals and right kidney are within normal limits. There is a 4.[address] one in the distal left ureter, with mild left hydroureteronephrosis and left perinephric stranding. C holecystectomy clips are present. No evidence of aortic aneurysm. No lymphadenopathy. No bowel obstruction or bowel wall thickening. There is no evidence to suggest acute appendicitis. Images through the pelvis were performed. Urinary bladder unremarkable. No pelvic mass seen. No ascit es. Impression: 4.5 mm distal left ureteral stone with mild left hydroureteronephrosis and left perinephric stranding . Reviewed, dictated and finalized at location . FILER Impression: 4.5 mm distal left ureteral stone with mild left hydroureteronephrosis and left perinephric stranding.
--- NOTE | ~2023-09-25 | US_ITS ---
Pelvic ultrasound. Clinical History: Pelvic pain Technique: Realtime transabdominal and transvaginal scanning of the pelvis was performed. Color flow Doppler and Doppler spectral analysis were performed. Findings: The uterus is absent, compatible prior hysterectomy. The right ovary measures 2.6 x 2.0 x 2.2 cm. No significant right ovarian or adnexal mass is seen. The left ovary measures 2.8 x 2.2 x 2.4 cm. No significant left ovarian or adnexal mass is seen. 7 flow present in both ovaries on Doppler spectral analysis. There is no evidence of free fluid in the cul de sac. Impression: Status post hysterectomy, otherwise unremarkable exam. Reviewed, dictated and finalized at location . [facility] Impression: Status post hysterectomy, otherwise unremarkable exam.
[2023-09-25 23:23] VITALS: BP 176/87; PULSE 76; RESP 20; TEMP 36.9; O2SAT 100
[2023-09-26] MEDS: MORPHINE SULFATE (*CRX) 4 MG/ML INJ IV PUSH ×2 (02:34→03:03)
[2023-09-26] MEDS: SODIUM CHLORIDE 0.9% IV 1,000 ML 999 ML IV CONT (02:35)
[2023-09-26 02:39] LABS: Basophils Absolute Auto 0.1 K/mm3 (0.0-0.1); Basophils Percent Auto 0.7 % (0.2-1.2); Eosinophils Percent Auto 0.4 % (0-4.4); Hematocrit 40.2 % (37.0-47.0); Hemoglobin 12.8 g/dL (12.0-15.0); Immature Granulocyte Absolute 0.03 K/mm3 (0.00-0.031); Immature Granulocyte Percent A 0.3 % (0-0.5); Lymphocytes Absolute Auto 1.82 K/mm3 (0.9-3.2); Lymphocytes Percent Auto 18.1 % (18.3-44.2); Mean Corpuscular HGB Conc 31.8 g/dl (32-36); Mean Corpuscular Hemoglobin 28.4 pg (26-34); Mean Corpuscular Volume 89.3 fl (80-100); Mean Platelet Volume 9.5 fl (7.4-10.4); Monocytes Absolute Auto 0.5 K/mm3 (0.1-0.6); Monocytes Percent Auto 5.2 % (2.6-8.5); Neutrophils Absolute Auto 7.6 K/mm3 (1.3-6.7); Neutrophils Percent Auto 75.3 % (45.5-73.1); Platelet Count Result 277 k/mm3 (150-375); Red Cell Distribution Width 13.2 % (11.5-14.5); White Blood Count 10.1 K/mm3 (4.5-10.0)
[2023-09-26 02:48] LABS: Bilirubin Urine Negative (Negative); Color Urine Yellow (Yellow); Glucose Urine UA Negative (Negative); Ketones Urine Negative (Negative); Leukocyte Esterase Ur Negative LEU/UL (Negative); Nitrate Urine Negative (Negative); Urobilinogen Urine 0.2 mg/dL (<2.0)
--- NOTE | 2023-09-26 02:52 | ED.ABDPAIN ---
HPI - Abdominal Pain General Chief Complaint: Abdominal Pain Stated Complaint: abd pain Time Seen by Provider: 09/26/23 02:16 Source: patient Limitations: no limitations History of Present Illness HPI narrative: Patient is a 43-year-old female present to the emergency department complaining of abdominal pain. Patient states around 9:30 p.m. she noticed a tingling sensation in her left lower quadrant that is been progressively worsening and constant waxes and wanes, has not seen making it better, has not tried anything for the pain, describes the pain currently as a cramping and throbbing and inflamed, denies any history is pain in the past, admits to be worse with urination, admits to radiating down to her left groin. Patient is to urinary frequency. Patient denies history of kidney stones. Patient denies hematuria, nausea, vomiting, recent injuries, recent illness, fever, chest pain, difficulty breathing, cough, vaginal discharge, vaginal bleeding, diarrhea, melena, hematochezia. Patient's her last bowel movement was last night and unremarkable. Related Data Home Medications Medication Instructions Recorded Confirmed citalopram 20 mg tablet 20 mg PO QPM 11/14/19 08/22/23 levothyroxine 112 mcg capsule 112 mcg PO DAILY 01/10/22 08/22/23 Allergies Allergy/AdvReac Type Severity Reaction Status Date / Time amoxicillin [From Augmentin] Allergy Intermediate Vomiting Verified 08/22/23 15:04 clavulanic acid Allergy Intermediate Vomiting Verified 08/22/23 15:04 [From Augmentin] SKIN GLUE Allergy Mild SKIN Uncoded 08/22/23 15:04 IRRITATION Review of Systems Review of Systems: A 10 system review of systems was completed on the patient and is negative except for what is stated in the HPI. Nursing and ancillary documentation was reviewed. [facility] Past Medical History Medical History Anxiety Hypothyroid Morbid obesity Surgical History Surgical History History of cholecystectomy Family History Family History Father Hypertension Patient's father is in good health Family history of diabetes mellitus in first degree relative Diabetes mellitus Mother Patient's mother is in good health Family history of gallbladder disease Sibling Patient's brother is in good health Hypertension Grandparent Family history of malignant neoplasm of stomach Carcinoma of colon Diabetes mellitus Son Asthma Son Asthma Grandparent Diabetes mellitus Other Family history of eczema Family history of malignant neoplasm of brain Family history of migraine headaches Social History Social History Smoking packs per day: 0.25 Smoking cigarettes per day: 5.0 Years smoked: 7 Smoking pack-years: 1.75 Smoking status: Former smoker Tobacco type: cigarettes Second hand tobacco smoke exposure: Yes Additional smoking assessment comments: pt worked in a [employer] Alcohol intake: former Alcohol use details: pt stated 13 years ago Substance use: never Substance use type: does not use Last use: 2003 Lack of Transportation: No Lack of Food: Never True Current Housing: I Have Housing Concerned About Future Housing: No Difficulty Paying Gas/Electric Bills: No Difficulty Paying for Meds: No Currently Unemployed: No Education: High School Diploma/GED Difficulty w/ Childcare or Family Care: No Living arrangements: with family Gender identity (if verbalized by the patient): Female Sexual Orientation (if Verbalized by the Patient): Straight or Heterosexual Spiritual care concerns: No Comments At time of signature, I have reviewed and agree with nursing past medical, surgical, social and family history unless otherwise noted. Please see the nursing
[2023-09-26 02:53] LABS: Alanine Aminotransferase 21 U/L (6-35); Albumin Level 4.3 g/dL (3.5-5.1); Alkaline Phosphatase 57 U/L (38-126); Anion Gap 10 mmol/L (8-16); Aspartate Amino Transferase 29 U/L (14-36); Bilirubin,Total 0.5 mg/dL (0.2-1.3); Blood Urea Nitrogen 12 mg/dL (7-17); CRP 0.6 mg/dL (<1.0); Calcium 8.4 mg/dL (8.4-10.2); Carbon Dioxide 22 mmol/L (22-30); Chloride 105 mmol/L (98-107); Estimated CRCL calculation 124 ml/min; Estimated Glomerular Filt Rate > 60; Glucose 156 mg/dL (65-110); Lipase 59 U/L (23-300); Potassium 3.6 mmol/L (3.4-5.0); Sodium 137 mmol/L (137-145)
[2023-09-26 02:56] LABS: Lactic Acid Reflex 1.4 mmol/L (0.7-2.0)
[2023-09-26 03:21] LABS: Bacteria Urine None Seen /hpf; Non Pathogenic Casts 0-2; RBC Urine >100 /hpf (0-2); Squamous Epithelial Cell Urine Occasional /hpf (Few); WBC Urine 0-5 /hpf
[2023-09-26 03:23] LABS: Add Urine Microscopic? YES
[2023-09-26 03:24] LABS: Appearance Urine Cloudy (Clear); Blood Urine 3+ (Negative); Protein Urine Trace mg/dL (Negative); Specific Grav Ur 1.022 (1.001-1.035)
[2023-09-26 03:26] LABS: SPREG INTERNAL CONTROL Positive; Serum Qual hCG Negative
[2023-09-26] MEDS: KETOROLAC 15 MG/ML VIAL (*BKC) IV PUSH (06:13)
[2023-09-26] MEDS: TAMSULOSIN HCL 0.4 MG CAPSULE PO (06:13)
[2023-09-26 06:24] VITALS: BP 148/72; PULSE 79; RESP 15; O2SAT 99
== END 2023-09-26 06:26 | disposition home or self-care (01) ==
PROVIDERS: Emergency Provider Student in an Organized Health Care Education/Training Program; PCP Family Medicine
DX: N13.2 Hydronephrosis with renal and ureteral calculous obstruction (principal); E03.9 Hypothyroidism, unspecified; E66.01 Morbid (severe) obesity due to excess calories; Z68.42 Body mass index [BMI] 45.0-49.9, adult; F41.9 Anxiety disorder, unspecified; Z87.891 Personal history of nicotine dependence; Z90.49 Acquired absence of other specified parts of digestive tract; Z90.710 Acquired absence of both cervix and uterus
CPT/HCPCS: 36415; 74177; 76830; 76856; 80053; 81001; 83605; 83690; 83735; 84703; 85025; 86140; 96361; 96374; 96375; 99284; A9270; J1885; J2270; J7030; Q9967

== ENCOUNTER 2024-02-13 11:12 | Outpatient (CLI) | payer OTHER, SELFPAY ==
[2024-02-13 12:04] LABS: SARS-CoV-2 RNA PCR Negative (Negative)
[2024-02-13 12:18] LABS: Influenza A QL RT-PCR Negative (Negative); Influenza B QL RT-PCR Negative (Negative)
== END 2024-02-13 11:13 | disposition home or self-care (01) ==
LOC: CHSLAB 11:14
PROVIDERS: PCP Family Medicine; Visit Provider Nurse Practitioner Family
DX: R05.9 Cough, unspecified (principal)
CPT/HCPCS: 87636

== ENCOUNTER 2024-03-25 14:14 | Outpatient (CLI) | payer OTHER, SELFPAY ==
--- NOTE | ~2024-03-25 | MM_ITS ---
EXAMINATION: MM screening shannen BI w gregor HISTORY: Screening TECHNIQUE: Craniocaudal and mediolateral oblique 3-D tomosynthesis images were obtained and synthetic 2-D images were generated. CAD analysis was submitted and interpreted. COMPARISON: No prior mammogram is available for comparison at this institution. BREAST PARENCHYMAL COMPOSITION: Not Dense: Breast are almost entirely fatty. FINDINGS: There is no evidence of suspicious mass, calcification, or architectural distortion to sugg est malignancy in either breast. There has been no suspicious interval change. IMPRESSION: 1. No mammographic evidence of malignancy. 2. Recommend routine screening mammography in one year. BI-RADS Category 1: Negative Reviewed, dictated and finalized at location B.
== END 2024-03-25 14:15 | disposition home or self-care (01) ==
LOC: ANHIMG 14:15
PROVIDERS: PCP Family Medicine; Visit Provider Family Medicine
DX: Z12.31 Encounter for screening mammogram for malignant neoplasm of breast (principal)
CPT/HCPCS: 77063; 77067

== ENCOUNTER 2024-05-19 09:50 | Outpatient (CLI) | payer OTHER, SELFPAY ==
--- NOTE | ~2024-05-19 | XR_ITS ---
XR finger 4th RT min 2V Ordering provider: Brandon Bey MD History: . 4TH FINGER PIP PAIN, LUMP ON JOINT ,FX X40YRS AGO . Comparison: December 05, 2010 FINDINGS: BONES: No acute fracture or dislocation. JOINT SPACES: Normal. SOFT TISSUES: Soft tissue swelling seen laterally over the proximal interphalangeal joint of the four th finger. IMPRESSION: No acute osseous abnormality. 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
== END 2024-05-19 09:51 | disposition home or self-care (01) ==
PROVIDERS: PCP Family Medicine; Visit Provider Family Medicine
DX: M20.001 Unspecified deformity of right finger(s) (principal)
CPT/HCPCS: 73140

== ENCOUNTER 2024-05-27 15:00 | Outpatient (CLI) | payer OTHER, SELFPAY ==
[2024-05-27 15:32] LABS: Rheumatoid Factor Screen Negative (Negative)
[2024-05-27 15:35] LABS: CRP 1.2 mg/dL (0.0-0.9)
[2024-05-27 16:21] LABS: Erythrocyte Sedimentation Rate 19 mm/hr (0-15)
[2024-05-30 10:48] LABS: ANA Cascade Screen POSITIVE (NEGATIVE); Chromatin (Nucleosomal) Ab <1.0 NEG AI (<1.0 NEG); Chromatin Antibody Charge YES; DNA (ds) Antibody Charge YES; RNP Antibody >8.0 POS AI (<1.0 NEG); RNP Antibody Charge YES; Sm Antibody <1.0 NEG AI (<1.0 NEG); Sm Antibody Charge YES; Sm/RNP Antibody <1.0 NEG AI (<1.0 NEG); Sm/RNP Antibody Charge YES
[2024-06-03 15:58] LABS: Anti Cyclic Citrullinated Pept <16 UNITS
== END 2024-05-27 15:01 | disposition home or self-care (01) ==
LOC: CHSLAB 15:03
PROVIDERS: PCP Family Medicine; Visit Provider Family Medicine
DX: M79.643 Pain in unspecified hand (principal)
CPT/HCPCS: 36415; 83516; 85652; 86038; 86140; 86200; 86225; 86235; 86430

== ENCOUNTER 2025-01-22 18:36 | Emergency (ER) | payer OTHER, SELFPAY ==
--- NOTE | 2025-01-22 18:39 | ED_ITS ---
HPI - Skin/Abscess/Foreign Bdy General Chief complaint: Skin/Abscess/Foreign Body Stated complaint: Rash/Wound Check Time Seen by Provider: 01/22/25 18:38 Source: patient Mode of arrival: ambulatory Limitations: no limitations History of Present Illness HPI narrative: Patient is a 44-year-old female who presents with redness and warmth surrounding incision sites from surgery 5 days ago. Patient that she was just allergic to adhesive tape that may be allergic to skin glue as well. Reports this started as itching that has worsened an skin surrounding incision sites are growing and redness and warmth. Related Data Home Medications Medication Instructions Recorded Confirmed Last Taken Type citalopram 20 mg tablet 20 mg PO QPM 11/14/19 01/22/25 02/27/22 History levothyroxine 112 mcg capsule 112 mcg PO DAILY 01/10/22 01/22/25 02/28/22 History MULTIVITAMIN PO DAILY 01/22/25 Unknown History cyanocobalamin (vitamin B-12) 500 mcg 01/22/25 Unknown History mcg tablet (Vitamin B-12) omeprazole 20 mg capsule,delayed 20 mg PO DAILY 01/22/25 01/22/25 Unknown History release ondansetron HCl 4 mg tablet 4 mg PO Q8H 01/22/25 01/22/25 Unknown History oxycodone 5 mg tablet mg 01/22/25 Unknown History polyethylene glycol 3350 17 g 01/22/25 Unknown History gram/dose oral powder Allergies Allergy/AdvReac Type Severity Reaction Status Date / Time amoxicillin (From Augmentin) Allergy Intermediate Vomiting Verified 01/22/25 19:21 clavulanic acid (From Allergy Intermediate Vomiting Verified 01/22/25 19:21 Augmentin) SKIN GLUE Allergy Mild SKIN Uncoded 01/22/25 19:21 IRRITATION Review of Systems 2 Review of Systems: All systems reviewed & are unremarkable except as noted in HPI and below Constitutional: Constitutional: Denies body ache(s), Denies chills, Denies fatigue, Denies fever(s), Denies headache(s), Denies malaise and Denies weakness Eyes: Eyes: Denies blurry vision, Denies irritation and Denies loss of vision ENT: Denies otalgia, Denies headache(s), Denies nasal discharge, Denies sinus pain and Denies sore throat Cardiovascular: Cardiovascular: Denies chest pain, Denies irregular heart rhythm and Denies dyspnea Respiratory: Respiratory: Denies dyspnea Gastrointestinal: Gastrointestinal: Denies abdominal pain, Denies melena, Denies hematochezia, Denies diarrhea, Denies nausea and Denies vomiting Musculoskeletal: Musculoskeletal: Denies back pain, Denies myalgias and Denies arthralgias Integumentary/Breasts: Skin/Breast: Reports pruritus, Reports rash and Reports wounds Neurologic: Denies headache(s), Denies loss of vision and Denies weakness Psychiatric: Psychiatric: Reports no additional psychiatric complaints Endocrine: Endocrine: Denies fatigue PMF Past Medical History Medical History Anxiety Morbid obesity Hypothyroid Surgical History Surgical History History of cholecystectomy Family History Family History Father Hypertension Patient's father is in good health Family history of diabetes mellitus in first degree relative Diabetes mellitus Mother Patient's mother is in good health Family history of gallbladder disease Sibling Patient's brother is in good health Hypertension Grandparent Family history of malignant neoplasm of stomach Carcinoma of colon Diabetes mellitus Son Asthma Son Asthma Grandparent Diabetes mellitus Other Family history of eczema Family history of malignant neoplasm of brain Family history of migraine headaches Social History Social History Smoking packs per day: 0.25 Smoking cigarettes per day: 5.0 Years smoked: 7 Smoking pack-years: 1.75 Smoking status: Former smoker Tobacco type: cigarettes Second hand tobacco smoke exposure: Yes Additional smoking assessment comments: 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 Alcohol intake: former Alcohol use details: pt stated 13 years ago Substance use: never Substance use type: does not use Last use: 2003 Lack of Transportation: No Lack of Food: Never True Current Housing: I Have Housing Concerned About Future Housing: No Difficulty Paying Gas/Electric Bills: No Difficulty Paying for Meds: No Currently Unemployed: No Education: High School Diploma/GED Difficulty w/ Childcare or Family Care: No Living arrangements: with family Gender identity (if verbalized by the patient): Female Sexual Orientation (if Verbalized by the Patient): Straight or Heterosexual Spiritual care concerns: No Comments At time of signature, agree with nursing past medical, surgical, social and family history. There is no relevant family history pertinent to the presenting complaint. Exam 2 Const: General: cooperative, healthy appearing, comfortable, no acute distress and well nourished Nutritional Appearance: well nourished O rientation/consciousness: patient oriented x3 Limitations: no limitations HENMT: Head: normal to inspection, normocephalic and atraumatic Ears: h earing grossly normal bilaterally and external ears normal Face/Nose/Sinus: N ormal external nose present, normal facial exam and face symmetric Face and sinus: normal facial exam and face symmetric Mouth: Yes lip normal Eyes: General: appearance normal, both eyes and all related structures A lignment and Position: alignment normal and position normal Periorbital: p eriorbital findings normal Eyelids: eyelids normal Pupils: Equal, round and reactive pupils present EOM: EOMs intact bilaterally Neck: Neck: normal visual inspection, full ROM and supple Chest: Chest palpation & inspection: normal inspection of the chest Resp: Effort & Inspection: normal respiratory effort and able to speak in complete sentences Auscultation: clear to auscultation bilaterally Cardio: Rate: regular rate Rhythm: regular rhythm Heart sounds: S1 normal heart sound present and S2 normal heart sound present GI: Inspection: normal to inspection Abdomen image: 1. Incision site with surrounding erythema and warmth 2. Incision site with surrounding erythe ma and warmth 3. Incision site with surrounding erythe ma and warmth 4. Incision site with surrounding erythe ma and warmth 5. Incision site with surrounding erythe ma and warmth 6. Area of erythema, papular rash 7. Area of erythema, papular rash 8. Area of erythema, papular rash Skin: General skin exam: normal color and no rashes or lesions noted Neuro: General: patient oriented x3 and moves all extremities Cranial nerves: Yes Equal, round and reactive pupils present Speech: normal speech Gait exam (Neuro): Normal gait present Extrem: General: normal to inspection, full ROM and no edema Psych: Appearance: grossly normal and well kempt Mental Status: mental status grossly normal Speech and movement: Normal speech and movement present Affect: normal affect Attitude: cooperative Thought process: Normal thought process present Course Course Emergency Course: Patient is aware of diagnosis, understands and agrees to treatment plan. Anticipatory guidance given. Patient agrees to follow-up as directed and is aware of reasons to seek care at the emergency department. Portions of this record may have been created with voice recognition software Level of Care: Express Care Visit Vital Signs Vital signs: Reviewed MDM - Skin/Abscess/Foreign Bdy MDM Narrative Medical decision making narrative: Pt well hydrated appearing, in no respiratory distress, hemodynamically stable. Recommend supportive care. The patient is stable at time of discharge the clinical impression was discussed and the patient was given the opportunity to ask questions, which were addressed as completely as possible given the information available at present. Anticipatory guidance and return to care precautions were discussed and the importance of primary care follow-up was stressed and encouraged. The patient voiced understanding of the plan, indications to return, and the need for follow-up. Exam findings show no acute concerns or changes Patient is appropriate for outpatient treatment and follow-up. Differential Diagnosis Differential diagnosis: Likely urticaria, cellulitis, contact dermatitis and other (Allergic reaction to adhesive) Medical Records Attestation: I reviewed the patient's medical records. Discharge Plan Discharge Clinical Impression: Allergic reaction to adhesive Cellulitis Qualifiers: Site of cellulitis: trunk Site of cellulitis of trunk: abdominal wall Qualified Code(s): L03.311 - Cellulitis of abdominal wall Patient Disposition: Home Condition: Stable Instructions: Cellulitis (ED) Additional Instructions: Take steroid in the morning with food. Take Claritin, Zyrtec or Irena in the morning along with Benadryl at night. For some people, adding oatmeal to a bath, applying cool wet compresses, and applying calamine lotion may help to relieve itching IF symptoms get worse to follow up with your primary care provider or seek ER visit if you developing difficulty breathing, weakness, dizziness LPlease follow up with your Primary Care Doctor within 48-72 hours - call for an appointment. Rest and elevate affected area; apply moist heat 3-4 times daily for 10-15 minutes. Please take Antibiotics as directed. If you experience any worsening redness, swelling, streaking (red lines), fever or chills please go to the ER Patient Language: [place] Prescriptions: New prednisone 20 mg tablet See Rx Instructions .ROUTE .COMPLEX Qty: 9 0RF Rx Instructions: 40 mg daily x3 days, 20 mg daily x3 days cephalexin 500 mg capsule 500 mg PO QID 7 Days Qty: 28 0RF No Action ondansetron HCl 4 mg tablet 4 mg PO Q8H omeprazole 20 mg capsule,delayed release(DR/EC) 20 mg PO DAILY polyethylene glycol 3350 17 gram/dose powder oxycodone 5 mg tablet Patient Comments: not taking MULTIVITAMIN PO DAILY cyanocobalamin (vitamin B-12) [Vitamin B-12] 500 mcg tablet levothyroxine 112 mcg capsule 112 mcg PO DAILY citalopram 20 mg tablet 20 mg PO QPM Follow-up/Referrals: Brandon Bey MD [Primary Care Provider] - 3 Days Time of Disposition: 19:36
[2025-01-22 18:51] VITALS: BP 134/88; PULSE 103; RESP 18; TEMP 36.2; O2SAT 98
== END 2025-01-22 19:46 | disposition home or self-care (01) ==
PROVIDERS: Emergency Provider Nurse Practitioner Family; PCP Family Medicine
DX: L03.311 Cellulitis of abdominal wall (principal); T78.49XA Other allergy, initial encounter; E03.9 Hypothyroidism, unspecified; Z79.899 Other long term (current) drug therapy; Z79.891 Long term (current) use of opiate analgesic; Z87.891 Personal history of nicotine dependence
CPT/HCPCS: 99213; G0463

== ENCOUNTER 2025-01-31 08:51 | Emergency (ER) | payer OTHER, SELFPAY ==
--- NOTE | ~2025-01-31 | CT_ITS ---
EXAMINATION: CT abdomen pelvis w con DATE: 01/31/2025 12:15 INDICATION: Status post gastric bypass procedure present with constipation TECHNIQUE: Computed tomography (CT) of the abdomen and pelvis was performed with 100 mL Omnipaque-350 intravenous contrast. Automated exposure control and iterative reconstruction technique were employe d. The dose-length product was 1817.99 mGy-cm. COMPARISON: None FINDINGS: Mild dependent atelectasis in bilateral lower lobes. Heart size normal. No pericardial or pleural eff usion. Postoperative change of prior gastric bypass procedure with retrocolic Darin limb extending to a jejunojejunal anastomosis in the left abdomen. Cholecystectomy clips the gallbladder fossa. Diffuse hepatic steatosis. Spleen, pancreas, bilateral adrenal glands and kidneys are normal. There are trac ts of stranding groundglass opacity in the anterior abdominal wall fat likely related to laparoscopy ports for reported recent surgery. There is a moderate amount of stool scattered throughout the colon . Small bowel and appendix are normal. Bladder is normal. The uterus is not identified and has likely been surgically resected. 1.5 cm left ovarian cyst/follicle. No free intraperitoneal gas or fluid. N o pathologically enlarged abdominal or pelvic lymphadenopathy. Mild thoracic and lumbar spondylosis. IMPRESSION: 1. Postoperative changes consistent with recent Darin-en-Y gastric bypass procedure. No acute intra-ab dominal/pelvic process. 2. Diffuse hepatic steatosis. 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 IMPRESSION: 1. Postoperative changes consistent with recent Darin-en-Y gastric bypass proced ure. No acute intra-abdominal/pelvic process. 2. Diffuse hepatic steatosis.
--- OUTSIDE RECORDS SUMMARY | 2025-01-31 08:52 | XMS_ITS | Encounter Summary ---
Author Organization [facility] Address [address] [place] [address] Care Team Providers Care Land Sales Agent Name Role Phone Liza Singh MD Primary Care Provider [phone] Encounter Details Date Type Department Care Team (Late st Contact Info) Description 03/01/2022 Lab Requisition [facility] [address] [place] [address] Constantin Schwab MD [address] [place] [address] Illness, unspecified Social History Tobacco Use Types Packs/Day Years Used Date Smoking Tobacco: Never Smokeless Tobacco: Never Alcohol Use Standard Drinks/Week Comments No 0 (1 standard drink = 0.6 oz pur e alcohol) Comments Unknown Sex and Gender Information Value Date Recorded Sex Assigned at Not on file Legal Sex Female 4:56 PM CDT Gender Identity Not on file Sexual Orientation Not on file documented as of this encounter Plan of Treatment Not on file documented as of this encounter Procedures Procedure Name Priority Date/Time Associated Diagnosis Comments PATHOLOGY TISSUE Routine 02/28/2022 8:15 AM CDT Illness, unspecified documented in this encounter Results * PATHOLOGY TISSUE (02/28/2022 8:15 AM CDT) Case Report Surgical Pathology Report Case: [id number] Authorizing Provider: Constantin Schwab MD Collected: 02/28/2022 08:15 AM Ordering Location: [facility] Pathology Lab Received: 03/01/2022 01:47 PM Pathologist: Linda Garzon MD Specimen: NasopharynxBiopsy 03/02/2022 5:02 PM CDT [facility] Final Diagnosis Nasopharyngeal cyst lesion biopsy: - Fragments of benign lymphoid tissue lined by respiratory-type epithelium - No cyst lining seen 03/02/2022 5:02 PM CDT [facility] at 1702 CDT Microscopic Description and Comment Overall findings are those of benign lymphoid tissue, likely pieces of adenoids. A cyst lining is not appreciated. Immunohistochemistry was performed to rule out a lymphoid malignancy. CD20, PAX-5, and CD79a, and CD3 highlight normal B-and T-lymphoid compartments. CD10 and BCL-6 are positive in germinal centers with no co-expression of BCL-2. Plasma cells stain positively for CD138 which are polytypic by in situ hybridization for kappa and lambda mRNA. CD56, CD30, and cyclin D1 are negative. ANGIE is negative, as well. 03/02/2022 5:02 PM CDT [facility] Clinical History Nasopharyngeal cyst? 03/02/2022 5:02 PM CDT [facility] Materials Received Received are three slides and one block (A1) labeled [id number] along with a copy of the outside pathology report. [place] [address]. All original materials are returned to the referring institution, along with a copy of our final report. 03/02/2022 5:02 PM CDT [facility] Disclaimer The performance characteristics of all immunohistochemical and indirect immunofluorescence stains (if any) cited in this report were determined by the Histopathology Laboratory of [facility]. Some of these tests were developed by our own laboratory and have not been cleared or approved by the US Food and Drug Administration. The FDA does not require this test to go through premarket FDA review. These tests are used for clinical purposes. They should not be regarded as investigational or for research. This laboratory is certified under the Clinical Laboratory Improvement Amendments (CLIA) as qualified to perform high complexity clinical laboratory testing. This case has been personally reviewed and interpreted by the attending (teaching) pathologist. 03/02/2022 5:02 PM CDT [facility] Embedded Images 03/02/2022 5:02 PM CDT [facility] Pathology/Cytolo gy BIOPSY OF NASOPHARYNX / Unknown 02/28/2022 8:15 AM CDT 03/01/2022 1:47 PM CDT Constantin Schwab MD LAB - PATHOLOGY/CYTOLOGY [facility] ROMANO Final Result [facility] [address] [phone] documented in this encounter Visit Diagnoses Diagnosis Illness, unspecified documented in this encounter Care Teams Land Sales Agent Relationship Specialty Start Date End Date Liza Singh MD [address] [place] [phone] PCP - General Family Medicine 07/06/18 documented as of this encounter
--- OUTSIDE RECORDS SUMMARY | 2025-01-31 08:53 | XMS_ITS | Clinical Summary ---
Author Organization [facility] Address [address] [facility] [place] [address] Care Team Providers Care Baseboard Heating Installer Name Role Phone Liza Singh MD Primary Care Provider [phone] Source Comments [facility],non-owned Affiliates and Associated Physician Practices is amultiple site organization consisting of ambulatory clinics and hospital sitesin [place], [place], [place] and [place]. This disclosure is being madepursuant to the Care Everywhere program and may not contain all information available regarding this patient. Last updated 18.[facility] Allergies No known active allergies Medications * Be aware that medications may not be up to date on this document. Alwaysverify current medications with the patient. levothyroxine (SYNTHROID) 100 MCG tablet Take 100 mcg by mouth once daily Active citalopram (CELEXA) 20 MG tablet Take 20 mg by mouth once daily Active Vit-Fe Fumarate-FA ( VITAMIN) 28-0.8 MG tablet Take 1 tablet by mouth once daily Active Social History Tobacco Use Types Packs/Day Years Used Date Smoking Tobacco: Never Smokeless Tobacco: Never Alcohol Use Standard Drinks/Week Comments No 0 (1 standard drink = 0.6 oz pur e alcohol) Comments Unknown Sex and Gender Information Value Date Recorded Sex Assigned at Not on file Legal Sex Female 4:56 PM CDT Gender Identity Not on file Sexual Orientation Not on file Last Filed Vital Signs Vital Sign Reading Time Taken Comments Blood Pressure 124/64 07/06/2018 8:38 PM CDT Pulse 79 07/06/2018 8:38 PM CDT Temperature 36.9 C (98.5 F) 07/06/2018 5:43 PM CDT Respiratory Rate 23 07/06/2018 8:38 PM CDT Oxygen Saturation 100% 07/06/2018 8:38 PM CDT Inhaled Oxygen Concentration - - Weight - - Height - - Body Mass Index - - Plan of Treatment Health Maintenance Due Date Last Done Comments COLOGUARD (AGES 45-75) - COL ON CA SCREENING 1979 COLON MONITORING 1979 COLONOSCOPY - COLON CA SCREENING 1979 CT COLONOGRAPHY - COLON CA SCREENING 1979 Colorectal Cancer Screening 1979 FIT - COLON CA SCREENING 1979 FLEX SIG - COLON CA SCREENING 1979 LIPID TESTING 1979 MAMMOGRAM 1979 PAP SMEAR 1979 HIV SCREENING 1994 HEPATITIS C SCREENING 04/04/1997 DTAP/TDAP/TD VACCINES (1 - Tdap) 1998 HEPATITIS B VACCINE (1 of 3 - 19+ 3-dose series) 1998 COVID-19 VACCINE ( - 2023-2 5 season) 2024 DEPRESSION SCREENING 09/10/2024 INFLUENZA VACCINE (Season Ended) 2025 ZOSTER VACCINE (1 of 2) 2029 HIB VACCINE Aged Out No longer eligi ble based on patient's age to complete this topic HPV VACCINE Aged Out No longer eligi ble based on patient's age to complete this topic MENINGOCOCCAL (Group B) VACC INE SHARED DECISION-MAKING Aged Out No longer eligibl e based on patient's age to complete this topic MENINGOCOCCAL GROUPS A/C/Y/W VACCINE Aged Out No longer eligible b ased on patient's age to complete this topic PNEUMOCOCCAL VACCINE Aged Out No long er eligible based on patient's age to complete this topic Insurance [facility] [place] Care Teams Baseboard Heating Installer Relationship Specialty Start Date End Date Liza Singh MD [address] [place] [phone] PCP - General Family Medicine 07/06/18
--- OUTSIDE RECORDS SUMMARY | 2025-01-31 08:53 | XMS_ITS | Data Portability ---
Author Organization [facility], [address] [place] [address] [place] ([place]) Address [address] [phone] Assessment Encounter Date Assessment Date Assessment LastModified by Organization Details LastModified Time 06/24/2024 06/24/2024 History: Dino is a 44-year-old female referred for evaluation of a right fourth finger swelling. She notices some swelling and some mild discomfort in her right index finger approximately three or four months ago. It was a little bit red and more swollen. It has improved over the last month. She had a prior open reduction internal fixation of her right finger fracture as a young child. She says that her finger has always been abnormally aligned since that time. Physical Examination: She has radial and ulnar laxity at 0 and 30 degrees of flexion at the PIP joint. There is swelling along the radial aspect of the PIP joint with mild ulnar deviation at the PIP joint. She has full range of motion and strength of her fourth finger PIP joint in flexion and extension. X-rays of the left hand were independently reviewed from [facility] and show hypertrophic bone along the proximal phalanx of all the fingers. There is some arthritis noted of the metatarsophalangeal joint of the right fourth finger. Assessment: 1. 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 2. History of ORIF of right fourth proximal phalanx. Plan: Clinical findings were discussed with the patient. I think she has some arthritis of the right MCP joint, as well as some mild arthritis in the right fourth PIP joint, which has caused a little bit of a cyst. I recommended conservative management with observation. If the pain worsens, I would be happy to see her back with an MRI of her right fourth finger. Otherwise, follow up as needed. [email or web address] Not available 06/24/2024 14:19:39 Plan of Treatment Reminders Order Date Submit Date Provider Last Modified By Organization Details Last Modified Time Details Appointments None record ed. Lab None record ed. Referral None record ed. Procedures None record ed. Surgeries None record ed. Imaging None record ed. Medication Orders None record ed. Patient TargetsNo targets recorded. Patient InstructionsNo instructions recorded. Reason for Referral None Reported. Results Created Date Observation Date Name Description Value Unit Range Abnormal Flag Note LastModifiedBy Organization Detail LastModifiedTime 09/30/1905/19/2024 XR, finge r(s) No observ ation record ed. [email or web address] Not Available 2024 13:08:18 Result Notes None recorded. Problems Name Problem SNOMED Code Status Onset Date Resolution Date Notes Provider Name and Address Organization Details Recorded Time Pain in right hand [id number] Active 2023 Carlos Alberto Brown MD [address] [place] [address], [phone], [facility] 4 16:41:41 Problem Notes None recorded. Medical Equipment None Reported. Allergies Allergen ID Allergen Name Allergen Category Reaction Reaction Severity Criticality Documentation Date Start Date Code Code System Note Provider Name and Address Organization Details Recorded Time 185717 Augmentin medicatio n Not available Not available Not available 10/08/20232021 06226 2 RxNorm React ion: Vomit ing; Gatro intes tinal upset ; Diarr hea; Nause a; Not Available [facility] 4 22:14:45 Medications Name Sig Start Date Stop Date Status Note LastModified by Organization Details LastModified Time sulfamethoxaz ole 800 mg-trimethopr im 160 mg tablet TAKE 1 TABLET BY MOUTH EVERY 12 HOURS FOR 10 DAYS active Not Available Not Available No t Available ofloxacin 0.3 % ear drops INSTILL 5 DROPS INTO RIGHT EAR THREE TIMES DAILY active Not Available Not Available No t Available citalopram 20 mg tablet TAKE ONE AND ONE-HALF TABLETS BY MOUTH DAILY active Not Available Not Available No t Available tamsulosin 0.4 mg capsule TAKE 1 CAPSULE BY MOUTH DAILY active Not Available Not Available No t Available doxycycline monohydrate 100 mg capsule active Not Available Not Available Not Available cephalexin 500 mg tablet active Not Available Not Availabl e Not Available ibuprofen 600 mg tablet TAKE 1 TABLET BY MOUTH EVERY 6 HOURS NEEDED FOR PAIN active Not Available Not Available No t Available levothyroxine 112 mcg tablet TAKE 1 TABLET BY MOUTH DAILY 30 MINUTES BEFORE BREAKFAST active Not Available Not Available No t Available Vitals Date Recorded Body height Body mass index (BMI) Body weight Heart rate Oxygen saturation Oxygen saturation in Arterial blood by Pulse oximetry Systolic And Diastolic Provider Name and Address Organization Details Last Updated DateTime 4 167.64 cm 49.2 kg/m2 199135. 67 g 73 /min 97 % 97 % 129/85 mm[Hg] Jen Deluca [facility] 4 11:57:12 Social History None recorded. Functional Status None recorded. Mental Status None recorded. Family History Nothing Reported. Medical History No medical history recorded. Gynecological HistoryNo gynecological history recorded. Obstetrics History GPAL:G 0 P 0 0 0 0 Past Encounters Encounter ID Performer Location Encounter Start Date Encounter Closed Date Diagnosis/Indication Diagnosis SNOMED-CT Code Diagnosis ICD10 Code Diagnosis Note [id number] Carlos Alberto Brown MD [facility] [address] [place] [address] 06/24/2024 11:47:31 06/24/2024 12:06:23 Pain in right hand [id number] 38912 M79.641 Additional diagnosis detail: Right hand pain Health Concerns Section Related Observation LastModified by Organization Detai ls LastModified Time None Recorded Concern Status LastModified by Organization Details LastModified Time None Recorded Advance Directives Directive None Recorded Payers Insurance Date Sequence Insurance Name Policy Number Policy Butler Covered Member ID Butler Member ID Guarantor Name 06/24/2024 1 [facility] ON OR AFTER 03/10/21 (MEDICAID REPLACEMENT - HMO) Yadira E Kenji [id number] Yadira E Kenji OBGyn Episode No OBEpisode recorded.
--- OUTSIDE RECORDS SUMMARY | 2025-01-31 08:53 | XMS_ITS | Clinical Summary ---
Author Organization [facility] [place] [address] Address [address] [place] [address] Care Team Providers Care Recovery Manager Name Role Phone Brandon Bey MD Primary Care Provide r Allergies Active Allergy Reactions Criticality Noted Date Comments Amoxicillin-Pot Clavulanate Hallucinations High 09/24/2024 Latex Swelling,Rash,Bliste rs,R edness High 09/24/2024 With adhesive Medications levothyroxine (SYNTHROID) 112 mcg tabletIndicatio ns:hypothyroidi sm Take 1 tablet (112 mcg total) by mouth nightly Active citalopram (CeleXA) 20 mg tabletIndicatio ns:Anxiety with Depression Take 1 tablet (20 mg total) by mouth nightly Active cholecalciferol 25 mcg (1,000 unit) tabletIndicatio ns:Vitamin D Deficiency Take 1 tablet (1,000 Units total) by mouth nightly Active cyclobenzaprine (FLEXERIL) 10 mg tabletIndicatio ns:Muscle Spasm Take 1 tablet (10 mg total) by mouth every 8 (eight) hours Post surgery: Every 8 hours for 4 days 12 tablet 5 Active cyanocobalamin (Vitamin B-12) 500 mcg tabletIndicatio ns:Prevention of Vitamin B12 Deficiency Take 1 tablet (500 mcg total) by mouth daily Start taking post op day 5 90 tablet 3 5 01/01/20 26 Active calcium citrate-vitamin D3 200 mg-6.25 mcg (250 unit) tabletIndicatio ns:Hypocalcemia Prevention Take 2 tablets by mouth 3 (three) times a day Start taking post op day 5 540 tablet 3 5 01/01/20 26 Active ondansetron (ZOFRAN) 4 mg tabletIndicatio ns:Prevention of Post-Operative Nausea and Vomiting Take 1 tablet (4 mg total) by mouth every 8 (eight) hours as needed for nausea or vomiting Start post-surgery 20 tablet 2 5 Active polyethylene glycol (MIRALAX) 17 gram/dose bulk powderIndicatio ns:constipation Take 17 g by mouth 2 (two) times a day Start post-surgery 1020 g 5 Active omeprazole (PriLOSEC) 20 mg capsule Take 1 capsule (20 mg total) by mouth 2 (two) times a day START POST SURGERY 60 capsule 5 Active multivitamin with minerals tablet Take 2 tablets by mouth daily Start taking post op day 5 60 tablet 11 5 01/01/20 26 Active oxyCODONE (ROXICODONE) 5 mg immediate release tabletIndicatio ns:Pain Take 1 tablet (5 mg total) by mouth every 6 (six) hours as needed for pain 10 tablet 5 Active hyoscyamine (LEVSIN) 0.125 mg SL tabletIndicatio ns:Gastric Cramping Take 1 tablet (0.125 mg total) by mouth every 6 (six) hours for 4 days Start post-surgery 16 tablet 5 01/17/20 25 Discontinue d(Stop Taking at Discharge) acetaminophen (TYLENOL) 500 mg tablet Take 2 tablets (1,000 mg total) by mouth every 8 (eight) hours for 4 days Start post-surgery 24 tablet 5 01/05/20 25 acetaminophen 500 mg capsuleIndicati ons:Pain Take 2 capsules (1,000 mg total) by mouth every 8 (eight) hours for 5 days 5 01/22/20 25 Active Problems Problem Noted Date Diagnosed Date Morbid (severe) obesity due to excess calories 0 01/15/2025 Morbid obesity 11/20/2024 BMI 50.0-59.9, adult 09/24/2024 Encounters Date Type Department Care Team Description 01/23/2025 1:15 PM CDT Office Visit [facility] Minimally Invasive Surgery [facility] Medical Office Building [address] [place] [phone] Sheila Telles NP Bariatric surgery status (Primary Dx); Morbid obesity (HCC) 01/21/[address] [facility] ([facility]) [facility] Minimally Invasive Surgery [facility] 12th Floor, [place] [phone] Elias Ann MD Medical Question/Miscellane ous 01/15/2025 3:06 PM CDT Anesthesia Event [facility] Operating Room [address] [place] [phone] Estrada Kate MD Nizam, Rasheeq Rahman, MD 01/15/2025 12:55 PM CDT - 01/15/2025 4:45 PM CDT Surgery [facility] Operating Room [address] [place] [address] Elias Ann MD LAPAROSCOPIC GASTRIC BYPASS 01/15/2025 10:26 AM CDT - 01/16/2025 2:20 PM CDT Hospital Encounter [facility] 1 [facility] [place] [phone] Elias Ann MD Morbid (severe) obesity due to excess calories (HCC) [E66.01] (Primary Dx) Discharge Disposition: Discharge to home or self care 01/09/2025 Telephone [facility] Minimally Invasive Surgery [address] [place] [address] Medical Office Building [address] [place] [phone] Noah Abel CMA 01/06/[address] [facility] ([facility]) [facility] Minimally Invasive Surgery [address] [facility] 12th Floor, [place] [phone] Art Frias NP Medical Question/Miscellane ous 12/31/2024 9:00 AM CDT Clinical Support [facility] Minimally Invasive Surgery [address] [place] [address] Medical Office Building [address] [place] [address] Morbid obesity (HCC) (Primary Dx) 12/30/2024 9:00 AM CDT Pre-Admission Testing [facility] for Preoperative Assessment and Planning [facility] ([address] [address] Morbid obesity (HCC) 11/07/2024 10:00 AM EXERCISE RIDER Office Visit [facility] Minimally Invasive Surgery [address] [place] [address] Medical Office Building [address] [place] [address] Elias Ann MD Morbid obesity (HCC) (Primary Dx); Prediabetes from Last 3 Months Surgical History Surgery Date Site/Laterality Comments COLONOSCOPY 2006 CHOLECYSTECTOMY 2014 HYSTERECTOMY 2018 Medical History Medical History Date Comments Anxiety 1994 Kidney stone 2023 Morbid obesity (HCC) 1999 Thyroid disease 2008 Delayed emergence from general anesthesia Family History Medical History Relation Name Comments Diabetes Brother Dawit klein Mental illness Brother Dawit klein Cancer Father Dawit klein Diabetes Father Dawit nishi Obesity Father Dawit klein Sleep apnea Father Dawit nishi Diabetes Father's Sister Rayna geigerg Sleep apnea Father's Sister Rayna valerotrong Obesity Maternal Grandfather Hank Cisneros Diabetes Maternal Grandmother Alicia cisneros Miscarriages / Stillbirths Mother's Sister Keiry castellanos Cancer Paternal Grandfather Alejandro nishi Obesity Son Steve Kenji Relation Name Status Comments Brother Dawit nishi Father Dawit nishi Father's Sister Raynagreer valerotrong Maternal Grandfather Hank Cisneros Maternal Grandmother Alicia cisneros Mother's Sister Keiry godinezla Paternal Grandfather Alejandro nishi Son Steve Kenji Social History Tobacco Use Types Packs/Day Years Used Date Smoking Tobacco: Former Cigarettes Passive Smoke Exposure: Past Smokeless Tobacco: Never Tobacco Cessation:Counseling Given: Not Answered AUDIT-C Answer Date Recorded Q1: How often do you have a drink containing alcohol? Never 01/15/2025 Q2: How many drinks containi ng alcohol do you have on a typical day when you are drinking? Patient does not drink Q3: How often do you have si x or more drinks on one occasion? Never 01/15/2025 Personal Safety Answer Date Recorded Have you ever been in or are you currently in a harmful physical or emotional relationship or is someone making you feel afraid or unsafe? Denies 01/15/2025 Comments No Sex and Gender Information Value Date Recorded Sex Assigned at Not on file Legal Sex Female 10:12 AM EXERCISE RIDER Gender Identity Not on file Sexual Orientation Not on file Obstetrics History Last Filed Vital Signs Vital Sign Reading Time Taken Comments Blood Pressure 120/85 01/23/2025 12:46 PM CDT Pulse 90 01/23/2025 12:46 PM CDT Temperature 37 C (98.6 F) 01/16/2025 12:45 PM CDT Respiratory Rate 18 01/16/2025 12:45 PM CDT Oxygen Saturation 96% 01/23/2025 12:46 PM CDT Inhaled Oxygen Concentration - - Weight 141.5 kg (312 lb) 01/23/2025 12:46 PM CDT Height 167.6 cm (5' 6 ) 01/23/2025 12:46 PM CDT Body Mass Index 50.36 01/23/2025 12:46 PM CDT Plan of Treatment Health Maintenance Due Date Last Done Comments Albumin Creatinine Ratio, Urine 1979 Breast Cancer Screening-Mammogram 1979 Colon Cancer Screening-Colonoscopy 1979 Depression Screening 1979 Hepatitis C Screening 1979 Dilated Eye Exam 1979 Foot Exam 1979 DTaP/Tdap/Td Vaccine (1 - Tdap) 1990 Hepatitis B Screening 1997 Regular Well Visit/Exam 18-64 1997 Pneumococcal vaccine <65 (1 of 2 - PCV) 1998 Hemoglobin A1C 03/26/2025 09/26/2024 Influenza Vaccine (Season Ended) 2025 Lipid Panel 09/26/2025 09/26/2024 eGFR 01/16/2026 01/16/2025, 09/26/2024 HPV Vaccines Aged Out No longer eligi ble based on patient's age to complete this topic Medical Devices Implanted Type Area Artificial Stone Setter Device Identifier Shelf Expiration Date Model / Serial / Lot [employer] Biological Bariatric Peristrip Non Crosslinked Bovine Pericardium For Endo Estee Thin [id number] - Sn/A - [id number] Implanted:Qty: 1 on 01/15/2025 by Elias Ann MD at [facility] Other - see comments N/A: Abdomen [employer] 04/18/2027 [id number] / N/A / [id number] Description:Nabila strip [employer] Biological Bariatric Peristrip Non Crosslinked Bovine Pericardium For Endo Estee Thin [id number] - Sn/A - [id number] Implanted:Qty: 1 on 01/15/2025 by Elias Ann MD at [facility] Other - see comments N/A: Abdomen [employer] 04/18/2027 [id number] THN / N/A / [id number] Description:Nabila strip Procedures Procedure Name Priority Date/Time Associated Diagnosis Comments EGFR Routine 01/16/2025 12:11 AM CDT BASIC METABOLIC PANEL Routine 01/16/2025 12:11 AM CDT CBC WITHOUT DIFFERENTIAL Routine 01/16/2025 12:11 AM CDT ANESTHESIA INTUBATION Routine 01/15/2025 3:38 PM CDT LAPAROSCOPIC GASTRIC BYPASS 01/15/2025 3:09 PM CDT Morbid obesity (HCC) NICOTINE METABOLITE SCREEN, URINE Routine 12/30/2024 10:05 AM CDT Morbid obesity (HCC) HEMOGLOBIN A1C Routine 09/26/2024 3:20 PM EXERCISE RIDER Morbid obesity (HCC) BMI 50.0-59.9, adult (HCC) LIPID PANEL Routine 09/26/2024 3:20 PM EXERCISE RIDER Morbid obesity (HCC) BMI 50.0-59.9, adult (HCC) from Last 3 Months or Most Recently Relevant to Health Maintenance Results * eGFR (01/16/2025 12:11 AM CDT) [facility] eGFR >90 >=60 mL/min/1. 73 m2 Comment: Interpretive Data Reference Interval Normal >/= 90 mL/min/1.73m2 Mildly decreased* 60 - 89 mL/min/1.73m2 Mildly to moderately decreased 45 - 59 mL/min/1.73m2 Moderately to severely decreased 30 - 44 mL/min/1.73m2 Severely decreased 15 - 29 mL/min/1.73m2 Kidney Failure < 15 mL/min/1.73m2 *Relative to young adult level Estimated glomerular filtration rate is determined by the 2020 CKD-EPI equation recommended by the National Kidney Foundation (A Unifying Approach to GFR Estimation: Recommendations of the NKF-ASK Task Force on Reassessing the Inclusion of Race in Diagnosing Kidney Disease, JASN 2020). The CKD-EPI equation should not be used for patients with unstable renal function and has not been validated in children and those over 70. Current interpretive data was last reviewed 2021. Blood 01/16/2025 12:1 1 AM CDT 01/16/2025 2:04 AM CDT us Elias Ann MD LAB BLOOD ORDERABLES Final Resu lt [facility] [place] [address] * (ABNORMAL) CBC without differential (01/16/2025 12:11 AM CDT) [facility] WBC 12.05(H) 3.80 - 9.90 K/cumm Hgb 13.8 11.9 - 15.5 g/dL [facility] Hct 41.8 35.6 - 45.5 % [facility] Plt 239 150 - 400 K/cumm [facility] MPV 10.0 9.1 - 12.3 fL [facility] RBC 4.72 3.90 - 5.20 M/cumm [facility] MCV 88.6 81.3 - 96.4 fL [facility] MCH 29.2 27.1 - 33.3 pg [facility] MCHC 33.0 32.3 - 35.7 g/dL [facility] RDW CV 12.9 11.1 - 14.9 % [facility] RDW SD 42.2 35.7 - 48.1 fL [facility] NRBC abs 0.00 0.00 - 0.01 K/cumm [facility] Blood 01/16/2025 12:1 1 AM CDT 01/16/2025 1:19 AM CDT us Elias nAn MD LAB BLOOD ORDERABLES Final Resu lt [facility] [place] [address] * Basic metabolic panel (01/16/2025 12:11 AM CDT) Sodium 136 135 - 145 mmol/L Potassium, pl 4.6 3.3 - 4.9 mmol/L [facility] Comment:Hemolyzed; Potassium value may be falsely elevated by as much as 0.6-1.0 mmol/L. Suggest redraw and reanalysis. Chloride 102 97 - 110 mmol/L [facility] CO2 22 22 - 32 mmol/L [facility] Anion gap 12 2 - 15 mmol/L [facility] BUN 10 6 - 25 mg/dL [facility] Creatinine 0.70 0.60 - 1.10 mg/dL [facility] Glucose 164 70 - 199 mg/dL [facility] Comment: Interpretive Data Fasting glucose >/= 126 mg/dl is diagnostic for diabetes. Fasting is defined as no caloric intake for at least 8 hours. Fasting glucose between 100 mg/dl to 125 mg/dl is diagnostic of prediabetes. In a patient with classic symptoms of hyperglycemia or hyperglycemic crisis, a random glucose >/= 200 mg/dl is diagnostic for diabetes. In the absence of unequivocal hyperglycemia, results should be confirmed by repeat testing. The classification and Diagnosis of Diabetes Diabetes Care 2021; 46: S19-S40. Current interpretive data was last revised 2022. Calcium 8.8 8.5 - 10.3 mg/dL [facility] Blood 01/16/2025 12:1 1 AM CDT 01/16/2025 2:04 AM CDT Elias Ann MD LAB BLOOD ORDERABLES Final Resu lt Performing Organization Address [facility] de Phone Number [facility] [place] [address] * Nicotine metabolite screen, urine (12/30/2024 10:05 AM CDT) Nicotine, ur <5.0 <5.0 ng/mL [facility] Cotinine, ur <5.0 <5.0 ng/mL [facility] Anabasine ur <2.0 <2.0 ng/mL [facility] Comment: ADDITIONAL INFORMATION This test was developed and its performance characteristics determined by [facility] in a manner consistent with CLIA requirements. This test has not been cleared or approved by the U.S. Food and Drug Administration. Test Performed by: [facility] - [address] [address] [place] Shifter: Juliane Jean Ph.D.; CLIA# [id number] Nornicotine, ur <2.0 <2.0 ng/mL [facility] Urine 12/30/2024 10:0 5 AM CDT 12/30/2024 11:06 AM CDT Elias Ann MD LAB URINE ORDERABLES Final Resu lt Performing Organization Address [facility] Co de Phone Number [facility] [place] [address] [facility] * (ABNORMAL) Hemoglobin A1c (09/26/2024 3:20 PM EXERCISE RIDER) Hgb A1C 6.0(H) 4.0 - 5.6 % Comment:Testing performed by : [address] [address] Estimated Average Glucose 126 mg/dL [facility] Comment: The ADA recommends reporting an estimated Average Glucose (eAG) with all Hemoglobin A1c results using the equation derived from a study of 507 normal and diabetic adults. Minority populations were underrepresented and children were not included. (Diabetes Care 31:2906-0552, 2008). The eAG is not equivalent to a fasting glucose. Testing performed by: [address] [address] Blood 09/26/2024 3:20 PM EXERCISE RIDER 09/26/2024 4:29 PM EXERCISE RIDER us Art Frias NP LAB BLOOD ORDERABLES Final Result [facility] [address] [facility] Department [place] [address] * Lipid panel (09/26/2024 3:20 PM EXERCISE RIDER) Cholesterol 150 30 - 199 mg/dL Comment: Interpretive Data Ages < or = 19 years Acceptable: <170 mg/dL Borderline high: 170-199 mg/dL High: >or= 200 mg/dL Ages > or = 20 years Desirable: <200 mg/dL Borderline high: 200-239 mg/dL High: >or= 240 mg/dL Literature References: 1. Expert Panel on Integrated Guidelines for Cardiovascular Health and Risk Reduction in Children and Adolescents. Pediatrics 2011;128:S213 2. NCEP Expert Panel. Circulation 2004;110:227 Current Interpretive Data was last revised on 2018. Testing performed by: [address] [address] Triglycerides 72 <=149 mg/dL [facility] Comment: Interpretive Data Ages < or = 9 years Acceptable: <75 mg/dL Borderline high: 75-99 mg/dL High: >or= 100 mg/dL Ages 10 to 20 years Acceptable: <90 mg/dL Borderline high: 90-129 mg/dL High: >or= 130 mg/dL Ages > or = 20 years Desirable: <150 mg/dL Borderline high: 150-199 mg/dL High: 200-499 mg/dL Very high: >or= 499 mg/dL Literature References: 1. Expert Panel on Integrated Guidelines for Cardiovascular Health and Risk Reduction in Children and Adolescents. Pediatrics 2011;128:S213 2. NCEP Expert Panel. Circulation 2004;110:227 Current Interpretive Data was last revised on 2018. Testing performed by: [address] [address] HDL 56 >=40 mg/dL [facility] Comment: Interpretive Data Ages < or = 19 years Acceptable: >45 mg/dL Borderline low: 40-45 mg/dL Low: <40 mg/dL Ages > or = 20 years Desirable: >or= 60 mg/dL Low: <40 mg/dL Literature References: 1. Expert Panel on Integrated Guidelines for Cardiovascular Health and Risk Reduction in Children and Adolescents. Pediatrics 2011;128:S213 2. NCEP Expert Panel. Circulation 2004;110:227 Current Interpretive Data was last revised on 2018. Testing performed by: [address] [address] LDL, calculated 80 <=129 mg/dL [facility] Comment: Interpretive Data Ages < or = 19 years Acceptable: <110 mg/dL Borderline high: 110-129 mg/dL High: >or= 130 mg/dL Ages > or = 20 years Optimal: <100 mg/dL Near optimal: 100-129 mg/dL Borderline high: 130-159 mg/dL High: >160 mg/dL Calculated using the Marcus LDL-C estimating equation. This equation was implemented on 2024. Prior to this date LDL-C was estimated using the Friedewald equation. Literature References: 1. Expert Panel on Integrated Guidelines for Cardiovascular Health and Risk Reduction in Children and Adolescents. Pediatrics 2011;128:S213 2. NCEP Expert Panel. Circulation 2004;110:227 3. Marcus Ruffin al. AYESHA Cardiol. 2020 January 08;5(5):540-548. doi: 10.1001/jamacardio.2020.0013 Current Interpretive Data was last revised on 2024. Testing performed by: [address] [address] Non-HDL Cholesterol 94 mg/dL [facility] Comment: Interpretive Data Ages < or = 19 years Acceptable: <120 mg/dL Borderline high: 120-144 mg/dL High: >145 mg/dL Ages > or = 20 years When triglycerides are >200 mg/dL, Non-HDL cholesterol is a secondary target of therapy with treatment goals that are 30 mg/dL greater than the LDL cholesterol target. Literature References: 1. Expert Panel on Integrated Guidelines for Cardiovascular Health and Risk Reduction in Children and Adolescents. Pediatrics 2011;128:S213 2. NCEP Expert Panel. Circulation 2004;110:227 Current Interpretive Data was last revised on 2018. Testing performed by: [facility], [address] [place] [address]., [id number] Chol/HDL ratio 3 [facility] Comment:Testing performed by : [facility], [address] [place] [address]., [id number] Blood 09/26/2024 3:20 PM EXERCISE RIDER 09/26/2024 4:28 PM EXERCISE RIDER Art Frias POST TENSIONING IRONWORKER LAB BLOOD ORDERABLES Final Result [facility] [address] [facility] Department [place] [address] from Last 3 Months or Most Recently Relevant to Health Maintenance Insurance [facility] Advance Directives For more information, please contact: [phone] * Full Code (Latest Code Status on File) Date Activated Date Inactivated Comments 01/15/2025 9:48 PM 01/16/2025 6:25 PM Care Teams Recovery Manager Relationship Specialty Start Date End Date Brandon Bey MD [address] [place] [address] PCP - General Family Medicine 04/10/23
--- OUTSIDE RECORDS SUMMARY | 2025-01-31 08:53 | XMS_ITS | Referral Summary ---
Author Organization [facility] [address] Address [address] [place] [address] Care Team Providers Care Forestry Extension Specialist Name Role Phone Brandon Bey MD Primary Care Provide r Encounters Date Type Department Care Team Description 01/23/2025 1:15 PM CDT Office Visit [facility] Minimally Invasive Surgery [address] [place] [address] Sheila Telles NP Bariatric surgery status (Primary Dx); Morbid obesity (HCC) 01/21/2025 Telephone [facility] Minimally Invasive Surgery [address] [place] [address] [facility] 12th Floor, [place] [address] Elias Ann MD Medical Question/Miscellane ous 01/15/2025 10:26 AM CDT - 01/16/2025 2:20 PM CDT Hospital Encounter [facility] [address] [place] [address] Elias Ann MD Morbid (severe) obesity due to excess calories (HCC) [E66.01] (Primary Dx) Discharge Disposition: Discharge to home or self care 01/15/2025 12:55 PM CDT - 01/15/2025 4:45 PM CDT Surgery [facility] Operating Room 1 [place] [address] Elias Ann MD LAPAROSCOPIC GASTRIC BYPASS 01/15/2025 3:06 PM CDT Anesthesia Event [facility] Operating Room 1 [place] [phone] Estrada Kate MD Nizam, Rasheeq Rahman, MD 01/09/2025 Telephone [facility] Minimally Invasive Surgery [address] [place] [address] Medical Office Building [address] [place] [address] Noah Abel CMA 01/06/2025 Telephone [facility] Minimally Invasive Surgery [address] [place] [address] Medicine 12th Floor, [place] [address] Art Frias NP Medical Question/Miscellane ous 12/31/2024 9:00 AM CDT Clinical Support [facility] Minimally Invasive Surgery [address] [place] [address] Medical Office Building [address] [place] [address] Morbid obesity (HCC) (Primary Dx) 12/30/2024 9:00 AM CDT Pre-Admission Testing [facility] Center for Preoperative Assessment and Planning [facility] ([facility] [address] [place] [address] Morbid obesity (HCC) 11/07/2024 10:00 AM INSTRUCTOR OF NURSING Office Visit [facility] Minimally Invasive Surgery [address] [place] [address] Medical Office Building [address] [place] [address] Elias Ann MD Morbid obesity (HCC) (Primary Dx); Prediabetes from Last 3 Months Allergies Active Allergy Reactions Criticality Noted Date [...] Morbid obesity 11/20/2024 BMI 50.0-59.9, adult 09/24/2024 Social History Tobacco Use Types Packs/Day Years [...] on file Legal Sex Female 10:12 AM INSTRUCTOR OF NURSING Gender Identity Not on file Sexual Orientation [...] 01/23/2025 12:46 PM CDT Plan of Treatment Not on file Medical Devices Implanted Type Area Threader Device Identifier Shelf Expiration Date Model / Serial / Lot [employer] Biological Bariatric Peristrip Non Crosslinked Bovine Pericardium For Endo Estee Thin [id number] - Sn/A - [id number] Implanted:Qty: 1 on 01/15/2025 by Elias Ann MD at [facility] Other - see comments N/A: Abdomen [employer] 04/18/2027 [id number] THN / N/A / [id number] Description:Nabila strip EQ works Biological Bariatric Peristrip Non Crosslinked Bovine Pericardium For Endo Estee Thin [id number] - Sn/A - [id number] Implanted:Qty: 1 on 01/15/2025 by Elias Ann MD at [facility] Other - see comments N/A: Abdomen [employer] 04/18/2027 [id number] THN / N/A / [id number] Description:Nabila strip Procedures Procedure Name Priority Date/Time [...] (HCC) HEMOGLOBIN A1C Routine 09/26/2024 3:20 PM INSTRUCTOR OF NURSING Morbid obesity (HCC) BMI 50.0-59.9, adult (HCC) LIPID PANEL Routine 09/26/2024 3:20 PM INSTRUCTOR OF NURSING Morbid obesity (HCC) BMI 50.0-59.9, adult (HCC) from Last 3 Months or Most Recently Relevant to Health Maintenance Results * eGFR (01/16/2025 12:11 AM CDT) eGFR >90 >=60 mL/min/1. 73 m2 Comment: [...] MD LAB BLOOD ORDERABLES Final Resu lt [facility] [place] [address] * (ABNORMAL) CBC without differential (01/16/2025 12:11 AM CDT) WBC 12.05(H) 3.80 - 9.90 K/cumm Hgb 13.8 11.9 - 15.5 g/dL [facility] Hct 41.8 35.6 - 45.5 % [facility] Plt 239 150 - 400 K/cumm [facility] MPV 10.0 9.1 - 12.3 fL [facility] RBC 4.72 3.90 - 5.20 M/cumm [facility] MCV 88.6 81.3 - 96.4 fL [facility] MCH 29.2 27.1 - 33.3 pg [facility] MCHC 33.0 32.3 - 35.7 g/dL [facility] RDW CV 12.9 11.1 - 14.9 % [facility] RDW SD 42.2 35.7 - 48.1 fL [facility] NRBC abs 0.00 0.00 - 0.01 K/cumm [facility] Blood 01/16/2025 12:1 1 AM CDT 01/16/2025 1:19 AM CDT Elias Ann MD LAB BLOOD ORDERABLES Final Resu lt [facility] [place] [address] * Basic metabolic panel (01/16/2025 12:11 AM CDT) [facility] Signature Sodium 136 135 - 145 mmol/L Potassium, pl 4.6 3.3 - 4.9 mmol/L [facility] Comment:Hemolyzed; Potassium value may be falsely elevated by as much as 0.6-1.0 mmol/L. Suggest redraw and reanalysis. Chloride 102 97 - 110 mmol/L [facility] CO2 22 22 - 32 mmol/L [facility] Anion gap 12 2 - 15 mmol/L [facility] BUN 10 6 - 25 mg/dL [facility] Creatinine 0.70 0.60 - 1.10 mg/dL [facility] Glucose 164 70 - 199 mg/dL [facility] Comment: Interpretive Data Fasting glucose >/= 126 [...] classification and Diagnosis of Diabetes Diabetes Care 202; 46: S19-S40. Current interpretive data was last revised 2022. Calcium 8.8 8.5 - 10.3 mg/dL [facility] Blood 01/16/2025 12:1 1 AM CDT 01/16/2025 2:04 AM CDT Elias Ann MD LAB BLOOD ORDERABLES Final Resu lt Performing Organization Address City/[facility]/ZIP Co de Phone Number [facility] [place] [address] * Nicotine metabolite screen, urine (12/30/2024 10:05 AM CDT) [facility] Nicotine, ur <5.0 <5.0 ng/mL [facility] Lab Cotinine, ur <5.0 <5.0 ng/mL [facility] Anabasine ur <2.0 <2.0 ng/mL [facility] Comment: ADDITIONAL INFORMATION This test was developed and its performance characteristics determined by [facility] in a manner consistent with CLIA requirements. This test has not been cleared or approved by the U.S. Food and Drug Administration. Test Performed by: [facility] [place] [address] [employer] Manager: Juliane Jean Ph.D.; CLIA# [id number] Nornicotine, ur <2.0 <2.0 ng/mL [facility] Urine 12/30/2024 10:0 5 AM CDT 12/30/2024 11:06 AM CDT Elias Ann MD LAB URINE ORDERABLES Final Resu lt Performing Organization Address City/[facility]/ZIP Co de Phone Number [facility] Department [place] [address] [facility] ref Lab * (ABNORMAL) Hemoglobin A1c (09/26/2024 3:20 PM INSTRUCTOR OF NURSING) Hgb A1C 6.0(H) 4.0 - 5.6 % Comment:Testing performed by : [address] [address] Estimated Average Glucose 126 mg/dL [facility] Comment: The ADA recommends reporting an estimated Average Glucose (eAG) with all Hemoglobin A1c results using the equation derived from a study of 507 normal and diabetic adults. Minority populations were underrepresented and children were not included. (Diabetes Care 31:2640-3845, 2008). The eAG is not equivalent to a fasting glucose. Testing performed by: [address] [address] Blood 09/26/2024 3:20 PM INSTRUCTOR OF NURSING 09/26/2024 4:29 PM INSTRUCTOR OF NURSING Art Frias SENIOR DATABASE PROGRAMMER LAB BLOOD ORDERABLES Final Result [facility] [address] [facility] Department of [place] [address] * Lipid panel (09/26/2024 3:20 PM INSTRUCTOR OF NURSING) [facility] Cholesterol 150 30 - 199 mg/dL Comment: [...] last revised on 2018. Testing performed by: [address] [address] Triglycerides 72 <=149 mg/dL [facility] Comment: [...] last revised on 2018. Testing performed by: [address] [address] HDL 56 >=40 mg/dL [facility] Comment: Interpretive Data Ages < [...] last revised on 2018. Testing performed by: [facility], [address] [place] [address]., [address] LDL, calculated 80 <=129 mg/dL [facility] Comment: [...] NCEP Expert Panel. Circulation 2004;110:227 3. Marcus Brewster et al. AYESHA Cardiol. 2020 January 08;5(5):540-548. doi: 10.1001/jamacardio.2020.0013 Current Interpretive Data was last revised on 2024. Testing performed by: [address] [address] Non-HDL Cholesterol 94 mg/dL [facility] Comment: [...] last revised on 2018. Testing performed by: [address] [address] Chol/HDL ratio 3 [facility] Comment:Testing performed by : [address] [address] Blood 09/26/2024 3:20 PM INSTRUCTOR OF NURSING 09/26/2024 4:28 PM INSTRUCTOR OF NURSING Art Frias NP LAB BLOOD ORDERABLES Final Result [facility] [address] [facility] Department of [place] [address] from Last 3 Months or Most Recently Relevant to Health Maintenance Insurance [facility] Advance Directives For more information, please contact: [phone] * Full Code (Latest Code Status on File) Date Activated Date Inactivated Comments 01/15/2025 9:48 PM 01/16/2025 6:25 PM Care Teams Forestry Extension Specialist Relationship Specialty Start Date End Date Brandon Bey MD [address] [place] [address] PCP - General Family Medicine 04/10/23
--- OUTSIDE RECORDS SUMMARY | 2025-01-31 08:53 | XMS_ITS | Data Portability ---
Author Organization [facility] Address [address] [place] [address] Care Team Providers Care Federal Law Clerk Name Role Phone LIZA SINGH Primary Care Provider Assessment No assessment recorded. Plan of Treatment Reminders Order Date Submit Date Provider Last Modified By Organization Details Last Modified Time Details Appointments None recorded. Lab lipid panel, serum 2017 018 [facility], [address], [place], [address], 8 16:23:30 CMP, serum or plasma 2017 018 [facility], [address], [place], [address], 8 16:23:29 TSH, ultra-sens itive, serum 2017 018 [facility], [address], [place], [address], 8 16:23:30 Referral None recorded. Procedures None recorded. Surgeries None recorded. Imaging holter monitor [address], [place], [address], 8 16:40:43 Medication Orders amoxicilli n 500 mg tablet 2017 018 [facility], [address], [place], [address], 8 11:01:29 metoprolol tartrate 25 mg tablet 2017 018 [facility]FACE [facility], [address] [place], [address], 8 16:18:18 citalopram 40 mg tablet 2017 018 [facility], [address] [place], [address], 8 11:25:34 levothyrox ine 88 mcg tablet 2017 018 [email or web address] 3 [facility], [address] [place], [address], 8 16:50:50 Patient TargetsNo targets recorded. Patient Instructions Encounter Date Encounter Id Patient Instructions Last Modified By Organization Details Last Modified Time 12/14/2017 [id number] When You Want to Lose Weight: Care Instructions [email or web address] Not available 12/14/2017 11:37:38 learning about t he mediterranean diet [email or web address] Not available 12/14/2017 11:37:38 mediterranean diet [email or web address] Not avail able 12/14/2017 11:37:38 hypothyroidism: care instructions [email or web address] Not available 12/14/2017 11:25:30 06/04/2018 [id number] bacterial vaginosis: care instructions [email or web address] Not available 06/04/2018 11:01:20 Reason for Referral None Reported. Results Created Date Observation Date Name Description Value Unit Range Abnormal Flag Note LastModifiedBy Organization Detail LastModifiedTime 12/20/19 18 12/20/2017 CMP, serum or plasm a glucose 96 mg/dL 65-99 Not Available [facility] ([facility]) [address] [facility], [place], [address], 12/20/2017 16:23:29 12/20/19 18 12/20/2017 CMP, serum or plasm a BUN 8 mg/dL 6-20 Not Available [facility] ([facility]) [address] [facility], [place], [address], 12/20/2017 16:23:29 12/20/19 18 12/20/2017 CMP, serum or plasm a creatinine 0.69 mg/dL 0.57-1 .00 Not Available [facility] ([facility]) [address] [facility] [place], [address], 12/20/2017 16:23:29 12/20/19 18 12/20/2017 CMP, serum or plasm a eGFR if nonafricn AM 111 mL/mi n/1.7 3 >59 Not Available [facility] ([facility]) [address] [facility] [place], [address], 12/20/2017 16:23:29 12/20/19 18 12/20/2017 CMP, serum or plasm a eGFR if africn AM 128 mL/mi n/1.7 3 >59 Not Available [facility] ([facility]) [address] [place], [address], 12/20/2017 16:23:29 12/20/19 18 12/20/2017 CMP, serum or plasm a BUN/creatini ne ratio 12 9-23 Not Available [facility] ([facility]) [address] [place], [address], 12/20/2017 16:23:29 12/20/19 18 12/20/2017 CMP, serum or plasm a sodium 137 mmol/ L 134-14 4 Not Available [facility] ([facility]) [address] [place], [address], 12/20/2017 16:23:29 12/20/19 18 12/20/2017 CMP, serum or plasm a potassium 4.4 mmol/ L 3.5-5. 2 Not Available [facility] ([facility]) [address] [place], [address], 12/20/2017 16:23:29 12/20/19 18 12/20/2017 CMP, serum or plasm a chloride 99 mmol/ L 96-106 Not Available [facility] ([facility]) [address] [facility] [place], [address], 12/20/2017 16:23:29 12/20/19 18 12/20/2017 CMP, serum or plasm a carbon dioxide, total 25 mmol/ L 18 Not Available [facility] ([facility]) [address] [facility] [place], [address], 12/20/2017 16:23:29 12/20/19 18 12/20/2017 CMP, serum or plasm a calcium 8.8 mg/dL 8.7-10 .2 Not Available [facility] ([facility]) [address] [facility] [place], [address], 12/20/2017 16:23:29 12/20/19 18 12/20/2017 CMP, serum or plasm a protein, total 7.1 g/dL 6.0-8. 5 Not Available [facility] ([facility]) [address] [place], [address], 12/20/2017 16:23:29 12/20/19 18 12/20/2017 CMP, serum or plasm a albumin 3.9 g/dL 3.5-5. 5 Not Available [facility] ([facility]) [address] [facility], [place], [address], 12/20/2017 16:23:29 12/20/19 18 12/20/2017 CMP, serum or plasm a globulin, total 3.2 g/dL 1.5-4. 5 Not Available [facility] ([facility]) [address] [place], [address], 12/20/2017 16:23:29 12/20/19 18 12/20/2017 CMP, serum or plasm a A/G ratio 1.2 1.2-2. 2 Not Available [facility] ([facility]) [address] [facility], [place], [address], 12/20/2017 16:23:29 12/20/19 18 12/20/2017 CMP, serum or plasm a bilirubin, total 0.5 mg/dL 0.0-1. 2 Not Available [facility] ([facility]) [address] [facility], [address], 12/20/2017 16:23:29 12/20/19 18 12/20/2017 CMP, serum or plasm a alkaline phosphatase 57 IU/L 39-117 Not Available [facility] ([facility]) [address] [facility], [address], 12/20/2017 16:23:29 12/20/19 18 12/20/2017 CMP, serum or plasm a AST (SGOT) 22 IU/L 0-40 Not Available [facility] ([facility]) [address] [facility], [address], 12/20/2017 16:23:29 12/20/19 18 12/20/2017 CMP, serum or plasm a ALT (SGPT) 24 IU/L 0-32 Not Available [facility] ([facility]) [address] [place], [address], 12/20/2017 16:23:29 12/20/19 18 12/20/2017 lipid panel , serum cholesterol, total 131 mg/dL 100-19 9 Not Available [facility] ([facility]) [address] [facility], [address], 12/20/2017 16:23:30 12/20/19 18 12/20/2017 lipid panel , serum triglyceride s 101 mg/dL 0-149 Not Available [facility] ([facility]) [address] [place], [address], 12/20/2017 16:23:30 12/20/19 18 12/20/2017 lipid panel , serum HDL cholesterol 44 mg/dL >39 Not Available [facility] ([facility]) [address] [place], [address], 12/20/2017 16:23:30 12/20/19 18 12/20/2017 lipid panel , serum VLDL cholesterol spring 20 mg/dL 5-40 Not Available [facility] ([facility]) [address] [place], [address], 12/20/2017 16:23:30 12/20/19 18 12/20/2017 lipid panel , serum LDL cholesterol calc 67 mg/dL 0-99 Not Available [facility] ([facility]) [address] [place], [address], 12/20/2017 16:23:30 12/20/19 18 12/20/2017 lipid panel , serum comment: [employer] Not Available [facility] ([facility]) [address] [place], [address], 12/20/2017 16:23:30 12/20/19 18 12/20/2017 lipid panel , serum T. chol/HDL ratio 3.0 ratio 0.0-4. 4 T. Chol/ HDL Ratio Men Women 1/2 Avg.R isk 3.4 3.3 Avg.R isk 5.0 4.4 2X Avg.R isk 9.6 7.1 3X Avg.R isk 23.4 11.0 Not Available [facility] ([facility]) [address] [place], [address], 12/20/2017 16:23:30 12/20/19 18 12/20/2017 TSH, ultra -sens itive , serum TSH 7.660 uIU/m L 0.450- 4.500 above high normal Not Available [facility] ([facility]) [address] [place], [address], 12/20/2017 16:23:30 12/20/19 18 12/20/2017 TSH, ultra -sens itive , serum T4,free (direct) 0.86 NG/dL 0.82-1 .77 Not Available [facility] ([facility]) [address] [place], [address], 12/20/2017 16:23:30 Result Notes None recorded. Problems Name Problem SNOMED Code Status Onset Date Resolution Date Notes Provider Name and Address Organization Details Recorded Time Anxiety 77303387 Active 018 [place] simone [facility] 12/14/2017 11:09:57 Notes:thyroid problems Problem Notes None recorded. Procedures Surgical History Date Name Laterality Status Provider Name and Address Organization Details Recorded Time Dilation and Curettage completed [facility] 11:11:34 Imaging Results None recorded. Procedure Notes None recorded. Medical Equipment None Reported. Allergies No known drug allergies Medications Name Sig Start Date Stop Date Status Note LastModified by Organization Details LastModified Time citalopram 40 mg tablet Take 1 tablet every day by oral route. 2017 active Not Available Not Available Not Avai lable amoxicillin 500 mg tablet Take 1 tablet every 8 hours by oral route. 2017 active Not Available Not Available Not Avai lable levothyroxine 100 mcg tablet Take 1 tablet every day by oral route in the morning . 2017 active Not Available Not Available Not Avai lable levothyroxine 88 mcg tablet Take 1 tablet every day by oral route. 12/20 completed Not Available Not Available Not Available metoprolol tartrate 25 mg tablet Take 1 tablet twice a day by oral route. 2017 active Not Available Not Available Not Avai lable Vitals Date Recorded Body height Body mass index (BMI) Body weight Body temperature Oxygen saturation Oxygen saturation in Arterial blood by Pulse oximetry Heart rate Systolic blood pressure Diastolic blood pressure Provider Name and Address Organization Details Last Updated DateTime 8 167.64 cm 50.8 kg/m2 091785. 8 g 98.4 [degF] 98 % 98 % 77 /min 120 mm[Hg] 84 mm[Hg] [facility] 8 11:08:40 Date Recorded Body height Body mass index (BMI) Body weight Respiratory rate Body temperature Oxygen saturation Oxygen saturation in Arterial blood by Pulse oximetry Heart rate Systolic blood pressure Diastolic blood pressure Provider Name and Address Organization Details Last Updated DateTime 8 167.64 cm 47.4 kg/m2 176994. 36 g 20 /min 98.5 [degF] 99 % 99 % 93 /min 128 mm[Hg] 94 mm[Hg] Catherine Lincoln [facility] 8 15:56:31 Date Recorded Body height Body mass index (BMI) Body weight Oxygen saturation Oxygen saturation in Arterial blood by Pulse oximetry Heart rate Body temperature Systolic blood pressure Diastolic blood pressure Provider Name and Address Organization Details Last Updated DateTime 8 167.64 cm 47.3 kg/m2 324974. 56 g 97 % 97 % 86 /min 99.1 [degF] 126 mm[Hg] 82 mm[Hg] Vianney HartmanROBBIN [facility] 8 16:35:59 Date Recorded Body height Heart rate Oxygen saturation Oxygen saturation in Arterial blood by Pulse oximetry Body temperature Body mass index (BMI) Body weight Respiratory rate Systolic blood pressure Diastolic blood pressure Provider Name and Address Organization Details Last Updated DateTime 8 167.64 cm 80 /min 91 % 91 % 99 [degF] 45.8 kg/m2 653845. 23 g 12 /min 116 mm[Hg] 78 mm[Hg] Hetal Tilley MA [facility] 8 10:47:17 Social History Question Answer Notes LastModified by Organizat ion Details LastModified Time Tobacco Smoking Status [facility]14[facility]2017 11:10:58 What Was The Date Of Your Most Recent Tobacco Screening? 02/01/2018 Information n ot available 04/03/2019 How Much Tobacco Do You Smoke? 0.5 PPD [email or web address] Information not available 12/14/2017 How Many Years Have You Smoked Tobacco? 8 [email or web address] Information not available 12/14/2017 Sex: Unknown Functional Status None recorded. Mental Status None recorded. Family History Relationship Description Onset Age of this Age Resolved Age Notes LastModified by Organization Details LastModified Time Mother Depressive disorder [email or web address] Not available 2017 11:23:30 Brother Depressive disorder [email or web address] Not available 2017 11:23:40 Father Diabetes mellitus [email or web address] Not available 2017 11:23:55 Father Hypertensive disorder [email or web address] Not available 2017 11:24:05 Father Hypercholest erolemwinston [email or web address] Not available 2017 11:24:15 Medical History Condition Response Anxiety Disorder Y Gynecological History Statement/Question Response Menses Monthly Y Current Control Method None Date of LMP 11/29/2017 LMP Approximate Obstetrics History GPAL:G 2 P 2 0 0 2 Type Value Full Term 2 Living 2 Total 2 Past Encounters Encounter ID Performer Location Encounter Start Date Encounter Closed Date Diagnosis/Indication Diagnosis SNOMED-CT Code Diagnosis ICD10 Code Diagnosis Note [id number] Liza Singh MD [facility] [address] [place] [address] 12/14/2017 10:28:48 12/14/2017 17:49:50 Moderate recurrent major depression 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 Exercise and healthy diet encouraged Hypothyroidism 65772474 E03.9 Morbid obesity 125508486 E66.01 [id number] ROC Luu NP [facility] [address] [place] [address] 02/01/2018 15:37:12 02/05/2018 16:40:43 Palpitations 94698056 R00.2 Holter monitor ordered- pt to look into self pay options. Start metoprolol as directed F/u 1 month [id number] Liza Singh MD [facility] [address] [place] [address] 02/13/2018 16:26:51 02/19/2018 09:19:11 Intermittent palpitations 518785169 R00.2 advised avoidance of caffeine and stimulant medication s, increased hydration, and considerat ion of calcium channel blockade or betablocke rs. Currently symptoms have resolved, at least temporaril y. [id number] Liza Singh MD [facility] [address] [place] [address] 06/04/2018 10:34:40 06/04/2018 16:50:38 Bacterial vaginosis 136314612 N76.0 obtain pap test at next visit. Immunization refused [id number] 050599 Z28.20 discussed symptoms of flu and advised patient to call immediatel y if high fever, myalgias, etc. Health Concerns Section Related Observation LastModified by Organization Detai ls LastModified Time None Recorded Concern Status LastModified by Organization Details LastModified Time None Recorded Advance Directives Directive None Recorded Payers Encounter Date Sequence Insurance Name Policy Number Policy Butler Covered Member ID Butler Member ID Guarantor Name 12/14/2017 1 *SELF PAY* Ta nna Kenji 02/01/2018 1 *SELF PAY* Ta nna Kenji 02/13/2018 1 *SELF PAY* Ta nna Kenji 06/04/2018 1 *SELF PAY* Ta nna Kenji Notes Date Note Type Note Provider Name and Address Organization Details Recorded Time 8 text/html Anxiety/DepressionReported bypatient.Quality:mood worse;increased anxiety Severity:denies suicidal ideations; able to maintain relationships; does not interfere with activities of daily living Duration:symptoms lasting over 2 weeks Onset/Timing:gradual Context:family problems;trouble at work Associated Symptoms:denies homicidal ideations; no visual/auditory hallucinations;eating more;anxiety;depression;lo neliness;feeling guilty;sleeping more (hypersomnia);inability to make decisions;low self-esteem;pessimism;desp air/hopelessness;social withdrawal;decreased effectiveness/productivity ;shortness of breathThyroidReported bypatient.Quality:not changing Severity:moderate Duration:constant Onset/Timing:gradual Context:history of hypothyroidism Modifying Factors:medication Exercisegets exercise Associated Symptoms:no cold intolerance; no heat intolerance; no dry eyes; no hoarseness; no difficulty swallowing; no neck masses; no deepening of the voice; no fast heart rate; no increased blood pressure; no palpitations; no chest pain; no chest tightess or pressure; no constipation; no diarrhea; no vomiting; no decreased appetite; no loose stools; no irregular menstrual periods; no excessive sweating; no joint pain; no numbness; no tingling of the hands or feet;weight gain ( lbs);dry skin;anxiety;depression;fa tigue;skin changes Liza Singh MD Attn: [address] [place], [address], [place] [facility] 12/14/2017 14:30:05 8 text/html Patient presents today for follow-up. Reports that she has been having strange heart palpitations x 3 days. Episodes are lasting approximately 30 seconds. Reports that she has normal palpitations but these have been different. Denies fatigue, blurred vision, SOB, LOC, CP. Patient's TSH was 7.6 in december 2017, levothyroxine increased from 88mcg to 100mcg. Reports anxiety and depression has been controlled. Pt does not have health insurance at this time. ROC Luu NP Attn: [address] [facility], [place], [address], [facility] 02/07/2018 10:51:19 8 text/html PalpitationsReported bypatient.Location:chest Quality:moderate fluttering Severity:moderate Duration:lasts minutes Onset/Timing:intermittent Context:occurs with stress;abrupt onset without warning;after caffeine use; not associated with physical exertion Alleviating Factors:relieved with rest; relieved with position change Aggravating Factors:worse with emotional stress Associated Symptoms:no chest pain/discomfort; no dyspnea; no decline in exercise capacity; no fatigue; no associated dizzinessNotes:pt could not get Holter monitor due to cost considerations. Liza Singh MD Attn: [address] [place], [address], [facility] 02/16/2018 20:11:52 8 text/html Vaginal DischargeReported bypatient.Location:vagina Quality:white; fishy smell Severity:moderate Duration:symptoms lasting over 2 weeks Context:history of recurrent vaginal infections Associated Symptoms:vaginal itching Liza Singh MD Attn: [address] [place], [address], [facility] 06/08/2018 16:18:04 OBGyn Episode No OBEpisode recorded.
--- OUTSIDE RECORDS SUMMARY | 2025-01-31 08:53 | XMS_ITS | Encounter Summary ---
Author Organization [facility] Address [address] [facility] [address] [place] [address] Phone Care Team Providers Care Tactical Deception Plans Officer Name Role Phone Brandon Bey MD Primary Care Provide r Encounter Details Date Type Department Care Team (Late st Contact Info) Description 09/17/[address] [facility] Surgery [address] [facility] [address] [place] [address] Art Frias, [employer]PUTER SYSTEM[employer] ARCHITECT [address] [facility] [phone] [place] [address] Social History Tobacco Use Types Packs/Day Years Used Date Smoking Tobacco: Never Assessed Comments Unknown Sex and Gender Information Value Date Recorded Sex Assigned at Not on file Legal Sex Female 10:12 AM [employer] Gender Identity Not on file Sexual Orientation Not on file documented as of this encounter Plan of Treatment Not on file documented as of this encounter Visit Diagnoses Not on filedocumented in this encounter Care Teams Tactical Deception Plans Officer Relationship Specialty Start Date End Date Brandon Bey MD [address] [place], [place] [id number] PCP - General Family Medicine 04/10/23 documented as of this encounter
[2025-01-31 09:25] VITALS: BP 135/80; PULSE 95; RESP 16; TEMP 36.8; O2SAT 100
--- NOTE | 2025-01-31 10:06 | ED_ITS ---
HPI - General Adult General Chief complaint: Recheck/Abnormal Lab/Rx Stated complaint: kely bypass post op comp Time Seen by Provider: 01/31/25 10:04 Source: patient Mode of arrival: ambulatory Limitations: no limitations History of Present Illness HPI narrative: 44 years old white female drove herself to the emergency room complaining of constipation. Patient status post gastric bypass on the 8th of this month at [facility]. Been trying to defecate using her finger in the vagina to push on the rectum to persist with down, lately started having bleeding from the rectum, and unable to defecate. Even unable to use Fleet enema because of too much swelling down the. History of hypothyroidism, anxiety/depression, currently on oxycodone for post surgery pain Related Data Home Medications ?Medication ?Instructions ?Recorded ?Confirmed ?Last Taken ?Type citalopram 20 mg tablet 20 mg PO QPM 11/14/19 01/22/25 02/27/22 History levothyroxine 112 mcg capsule 112 mcg PO DAILY 01/10/22 01/22/25 02/28/22 History MULTIVITAMIN PO DAILY 01/22/25 Unknown History cyanocobalamin (vitamin B-12) 500 mcg 01/22/25 Unknown History mcg tablet (Vitamin B-12) omeprazole 20 mg capsule,delayed 20 mg PO DAILY 01/22/25 01/22/25 Unknown History release ondansetron HCl 4 mg tablet 4 mg PO Q8H 01/22/25 01/22/25 Unknown History oxycodone 5 mg tablet mg 01/22/25 Unknown History polyethylene glycol 3350 17 g 01/22/25 Unknown History gram/dose oral powder Allergies Allergy/AdvReac Type Severity Reaction Status Date / Time amoxicillin (From Augmentin) Allergy Intermediate Vomiting Verified 01/31/25 09:28 clavulanic acid (From Allergy Intermediate Vomiting Verified 01/31/25 09:28 Augmentin) SKIN GLUE Allergy Mild SKIN Uncoded 01/31/25 09:28 IRRITATION Review of Systems 2 Review of Systems: All systems reviewed & are unremarkable except as noted in HPI and below PMFSH Past Medical History Medical History Anxiety Morbid obesity Hypothyroid Surgical History Surgical History History of cholecystectomy Family History Family History Father Hypertension Patient's father is in good health Family history of diabetes mellitus in first degree relative Diabetes mellitus Mother Patient's mother is in good health Family history of gallbladder disease Sibling Patient's brother is in good health Hypertension Grandparent Family history of malignant neoplasm of stomach Carcinoma of colon Diabetes mellitus Son Asthma Son Asthma Grandparent Diabetes mellitus Other Family history of eczema Family history of malignant neoplasm of brain Family history of migraine headaches Social History Social History Smoking packs per day: 0.25 Smoking cigarettes per day: 5.0 Years smoked: 7 Smoking pack-years: 1.75 Smoking status: Former smoker Tobacco type: cigarettes Second hand tobacco smoke exposure: Yes Additional smoking assessment comments: pt worked in a [employer] Alcohol intake: former Alcohol use details: pt stated 13 years ago Substance use: never Substance use type: does not use Last use: 2003 Lack of Transportation: No Lack of Food: Never True Current Housing: I Have Housing Concerned About Future Housing: No Difficulty Paying Gas/Electric Bills: No Difficulty Paying for Meds: No Currently Unemployed: No Education: High School Diploma/GED Difficulty w/ Childcare or Family Care: No Living arrangements: with family Gender identity (if verbalized by the patient): Female Sexual Orientation (if Verbalized by the Patient): Straight or Heterosexual Spiritual care concerns: No Exam 2 Narrative: General appearance: Well-developed, well-nourished Skin: Normal color Head: Normocephalic, nontraumatic Eyes: Clear conjunctiva ENT: Oropharynx normal, ears normal, nose normal Neck: Supple, nontender Chest and respiratory: Airway patent, no respiratory distress, no accessory muscle use Heart: Regular rate/rhythm Abdomen: Soft, nontender, no organomegaly, quiet bowel sounds, RECTAL EXAM SHOWING NO STOOL IN THE RECTAL POUCH, NO BLEEDING, NO HEMORRHOIDS, A LOT OF SKIN TAG Vascular: Normal peripheral pulses, normal capillary refill. Musculoskeletal: Normal range of motion, nontender back Neurologic: Alert and oriented ?3, CATALOG LIBRARIAN is normal as tested, no gross motor deficit Course Vital Signs Vital signs: Vital Signs Temperature 36.8 C 01/31/25 09:25 Pulse Rate 95 01/31/25 09:25 Respiratory Rate 16 05/24/25 09:25 Blood Pressure 135/80 01/31/25 09:25 Pulse Oximetry 100 01/31/25 09:25 Temperature 36.8 C 01/31/25 09:25 Pulse Rate 78 01/31/25 14:16 Respiratory Rate 16 01/31/25 14:16 Blood Pressure 139/63 01/31/25 14:16 Pulse Oximetry 99 01/31/25 14:16 Medical Decision Making MDM Narrative Medical decision making narrative: Patient came with constipation status post gastric bypass and oxycodone use Differential diagnosis constipation, vaginal rectal fistula Blood workup today includes CBC, CMP SHOWED AST 358, ALT 235 HIGH LIKELY SECONDARY TO THE BYPASS SURGERY RECENTLY. PATIENT WAS ADVISED TO FOLLOW-UP WITH HER FAMILY PHYSICIAN/THE BYPASS PHYSICIAN WITHIN 3-5 DAYS FOR FURTHER EVALUATION. CT abdomen and pelvis with IV contrast DIFFUSE HEPATIC STEATOSIS, MODERATE AMOUNT OF STOOL SCATTERED THROUGHOUT THE COLON, RECTAL EXAM SHOWING NO STOOL IN THE RECTAL POUCH PATIENT WAS ADVISED TO CONTINUE MIRALAX 1 PACK EVERY 2 HOURS UP TO 6 TIMES A DAY, ABDOMEN A PRESCRIPTION OF DULCOLAX SUPPOSITORY WAS SENT TO THE PATIENT'S PHARMACY THE PT WAS DISCHARGED TO HOME.THE PT,S CONDITION UPON DISCHARGE WAS FAIR,EDUCATION WAS PROVIDED TO THE PT IN REFERENCE TO THE FINAL IMPRESSION,DISCHARGE STUDY RESULTS,TREATMENT,PROGNOSIS AND NEED FOR FOLLOW UP . Differential Diagnosis Differential Diagnosis: As above Vital Signs Vital Signs: Vital Signs Temperature 36.8 C 01/31/25 09:25 Pulse Rate 95 01/31/25 09:25 Respiratory Rate 16 01/31/25 09:25 Blood Pressure 135/80 01/31/25 09:25 Pulse Oximetry 100 01/31/25 09:25 Temperature 36.8 C 01/31/25 09:25 Pulse Rate 78 01/31/25 14:16 Respiratory Rate 16 01/31/25 14:16 Blood Pressure 139/63 01/31/25 14:16 Pulse Oximetry 99 01/31/25 14:16 Lab Data 01/31/25 11:07 01/31/25 11:07 Labs: Lab Results 01/31/25 Range/Units 11:07 WBC 5.9 (4.5-10.0) K/mm3 RBC 4.60 (4.2-5.4) M/mm3 Hgb 13.2 (12.0-15.0) g/dL Hct 41.2 (37.0-47.0) % MCV 89.6 (80-100) fl MCH 28.7 (26-34) pg MCHC 32.0 (32-36) g/dl RDW 13.3 (11.5-14.5) % Plt Count 265 (150-375) k/mm3 MPV 9.8 (7.4-10.4) fl Immature Gran % (Auto) 0.2 (0-0.5) % Neut % (Auto) 53.5 (45.5-73.1) % Lymph % (Auto) 30.4 (18.3-44.2) % [place] % (Auto) 12.1 H (2.6-8.5) % Eos % (Auto) 3.1 (0-4.4) % Baso % (Auto) 0.7 (0.2-1.2) % Lymph # (Auto) 1.78 (0.9-3.2) K/mm3 [place] # (Auto) 0.7 H (0.1-0.6) K/mm3 Eos # (Auto) 0.2 (0-0.3) K/mm3 Baso # (Auto) 0.0 (0.0-0.1) K/mm3 Abs Immat Gran (auto) 0.01 (0.00-0.031) K/mm3 Absolute Neuts (auto) 3.1 (1.3-6.7) K/mm3 Absolute Nucleated RBC 0.000 (0.0-0.012) K/mm3 Nucleated RBC % 0.0 (0.0-0.2) % Sodium 138 (137-145) mmol/L Potassium 3.7 (3.4-5.0) mmol/L Chloride 103 (98-107) mmol/L Carbon Dioxide 28 (22-30) mmol/L Anion Gap 7 (4-12) mmol/L BUN 5 L D (7-17) mg/dL Creatinine 0.60 L (0.7-1.0) mg/dL Estim Creat Clear Calc 144 ml/min Estimated GFR > 60 (59 - ) Glucose 119 H (65-110) mg/dL Calcium 8.3 L (8.4-10.2) mg/dL Total Bilirubin 0.6 (0.2-1.3) mg/dL AST 358 H (14-36) U/L ALT 235 H (6-35) U/L Alkaline Phosphatase 83 (38-126) U/L Total Protein 7.0 (6.3-8.2) g/dL Albumin 3.9 (3.5-5.1) g/dL Imaging Data Radiologist's impression: Impressions Abdomen/Pelvis CT 01/31/25 12:37 IMPRESSION: 1. Postoperative changes consistent with recent Darin-en-Y gastric bypass procedure. No acute intra-abdominal/pelvic process. 2. Diffuse hepatic steatosis. Critical Care Time Critical Care Time Critical Care Time: No Discharge Plan Discharge Clinical Impression: Constipation, Elevated liver enzymes Patient Disposition: Home Condition: Stable Instructions: Constipation (DC) Additional Instructions: RETURN IF SYMPTOMS ARE WORSENING , CALL YOUR FAMILY PHYSICIAN FOR APPOINTMENT, TAKE TYLENOL NEEDED FOR ACHES AND PAIN, CONTINUE HOME MEDICATIONS. MIRALAX EVERY 2 HOURS UP TO 6 TIMES A DAY ENCOURAGE FLUID INTAKE CONTACT YOUR FAMILY PHYSICIAN/YOUR BYPASS PHYSICIAN SOON POSSIBLE FOR FURTHER EVALUATION OF ELEVATED LIVER ENZYMES. Patient Language: Amharic Prescriptions: New bisacodyl [Dulcolax (bisacodyl)] 10 mg suppository 10 mg RECTAL TID PRN (Reason: constipation) Qty: 12 0RF No Action ondansetron HCl 4 mg tablet 4 mg PO Q8H omeprazole 20 mg capsule,delayed release(DR/EC) 20 mg PO DAILY polyethylene glycol 3350 17 gram/dose powder oxycodone 5 mg tablet Patient Comments: not taking MULTIVITAMIN PO DAILY cyanocobalamin (vitamin B-12) [Vitamin B-12] 500 mcg tablet prednisone 20 mg tablet See Rx Instructions .ROUTE .COMPLEX Qty: 9 0RF Rx Instructions: 40 mg daily x3 days, 20 mg daily x3 days cephalexin 500 mg capsule 500 mg PO QID 7 Days Qty: 28 0RF levothyroxine 112 mcg capsule 112 mcg PO DAILY citalopram 20 mg tablet 20 mg PO QPM Follow-up/Referrals: Brandon Bey MD [Primary Care Provider] -
--- OUTSIDE RECORDS SUMMARY | 2025-01-31 10:13 | XMS_ITS | Clinical Summary ---
Author Organization [facility] [address] Address [address] [place] [address] Care Team Providers Care Goods Layer Name Role Phone Brandon Bey MD Primary [...] Description 01/23/2025 1:15 PM CDT Office Visit [facility] Minimally Invasive Surgery [facility] Medical Office Building [address] [place] [phone] Sheila Telles NP Bariatric surgery status (Primary Dx); Morbid obesity (HCC) 01/21/2025 Telephone [facility] ([facility]) [facility] Minimally Invasive Surgery [facility] 12th Floor, [place] [phone] Elias Ann MD Medical Question/Miscellane ous 01/15/2025 3:06 PM CDT Anesthesia Event [facility] Operating Room [address] [place] [phone] Estrada Kate MD Nizam, Rasheeq Rahman, MD 01/15/2025 12:55 PM CDT - 01/15/2025 4:45 PM CDT Surgery [facility] Operating Room 1 [place] [address] Elias Ann MD LAPAROSCOPIC GASTRIC BYPASS 01/15/2025 10:26 AM CDT - 01/16/2025 2:20 PM CDT Hospital Encounter [facility] 1 [facility] [place] [phone] Elias Ann MD Morbid (severe) obesity due to excess calories (HCC) [E66.01] (Primary Dx) Discharge Disposition: Discharge to home or self care 01/09/2025 Telephone [facility] Minimally Invasive Surgery [address] [place] [address] Medical Office Building [address] [place] [phone] Noah Abel CMA 01/06/2025 Telephone [facility] ([facility]) [facility] Minimally Invasive Surgery [address] [facility] 12th Floor, [place] [phone] Art Frias NP Medical Question/Miscellane ous 12/31/2024 9:00 AM CDT Clinical Support [facility] Minimally Invasive Surgery [address] [place] [address] Medical Office Building [address] [place] [address] Morbid obesity (HCC) (Primary Dx) 12/30/2024 9:00 AM CDT Pre-Admission Testing [facility] Center for Preoperative Assessment and Planning [facility] ([address] [address] Morbid obesity (HCC) 11/07/2024 10:00 AM SALON MANAGER Office Visit [facility] Minimally Invasive Surgery [address] [place] [address] Medical Office Building [address] [place] [address] Elias Ann MD Morbid obesity (HCC) (Primary [...] on file Legal Sex Female 10:12 AM SALON MANAGER Gender Identity Not on file Sexual Orientation [...] this topic Medical Devices Implanted Type Area Manager Practice Device Identifier Shelf Expiration Date Model / Serial / Lot [employer] Biological Bariatric Peristrip Non Crosslinked Bovine Pericardium For Endo Estee Thin [id number] - Sn/A - [id number] Implanted:Qty: 1 on 01/15/2025 by Elias Ann MD at [facility] Other - see comments N/A: Abdomen [employer] 04/18/2027 [id number] THN / N/A / [id number] Description:Nabila strip [employer] Biological Bariatric Peristrip Non Crosslinked Bovine Pericardium For Endo Estee Thin [id number] - Sn/A - [id number] Implanted:Qty: 1 on 01/15/2025 by Elias Ann MD at [facility] Other - see comments N/A: Abdomen [employer] 04/18/2027 [id number] THN / N/A / [id number] Description:Nabila strip Procedures Procedure Name Priority Date/Time [...] (HCC) HEMOGLOBIN A1C Routine 09/26/2024 3:20 PM SALON MANAGER Morbid obesity (HCC) BMI 50.0-59.9, adult (HCC) LIPID PANEL Routine 09/26/2024 3:20 PM SALON MANAGER Morbid obesity (HCC) BMI 50.0-59.9, adult (HCC) from Last 3 Months or Most Recently Relevant to Health Maintenance Results * eGFR (01/16/2025 12:11 AM CDT) [facility] eGFR >90 >=60 mL/min/1. 73 m2 Comment: [...] MD LAB BLOOD ORDERABLES Final Resu lt [facility] Department [place] [address] * (ABNORMAL) CBC without differential (01/16/2025 12:11 AM CDT) [facility] WBC 12.05(H) 3.80 - 9.90 K/cumm Hgb 13.8 11.9 - 15.5 g/dL [facility] Hct 41.8 35.6 - 45.5 % [facility] Plt 239 150 - 400 K/cumm [facility] MPV 10.0 9.1 - 12.[address] [facility] RBC 4.72 3.90 - 5.20 M/cumm [facility] MCV 88.6 81.3 - 96.[address] [facility] MCH 29.2 27.1 - 33.[address] [facility] MCHC 33.0 32.3 - 35.7 g/dL [facility] RDW CV 12.9 11.1 - 14.9 % [facility] RDW SD 42.2 35.7 - 48.[address] [facility] NRBC abs 0.00 0.00 - 0.01 K/cumm [facility] Blood 01/16/2025 12:1 1 AM CDT 01/16/2025 1:19 AM CDT us Elias Ann MD LAB BLOOD ORDERABLES Final Resu lt [facility] Department [place] [address] * Basic metabolic panel (01/16/2025 12:11 AM CDT) Sodium 136 135 - 145 mmol/L Potassium, pl 4.6 3.3 - 4.9 mmol/L [facility] Comment:Hemolyzed; Potassium value may be falsely elevated by as much as 0.6-1.0 mmol/L. Suggest redraw and reanalysis. Chloride 102 97 - 110 mmol/L [facility] CO2 22 22 - 32 mmol/L [facility] Anion gap 12 2 - 15 mmol/L [facility] BUN 10 6 - 25 mg/dL [facility] Creatinine 0.70 0.60 - 1.10 mg/dL [facility] Glucose 164 70 - 199 mg/dL [facility] Comment: Interpretive Data Fasting glucose >/= 126 [...] 2022. Calcium 8.8 8.5 - 10.3 mg/dL [facility] Blood 01/16/2025 12:1 1 AM CDT 01/16/2025 2:04 AM CDT Elias Ann MD LAB BLOOD ORDERABLES Final Resu lt Performing Organization Address [facility] de Phone Number [facility] [place] [address] * Nicotine metabolite screen, urine (12/30/2024 10:05 AM CDT) Nicotine, ur <5.0 <5.0 ng/mL [facility] Cotinine, ur <5.0 <5.0 ng/mL [facility] Anabasine ur <2.0 <2.0 ng/mL [facility] Comment: ADDITIONAL INFORMATION This test was developed and its performance characteristics determined by [facility] in a manner consistent with CLIA requirements. This test has not been cleared or approved by the U.S. Food and Drug Administration. Test Performed by: [facility] - [address] [address] Strike Operations Officer: Juliane Jean Ph.D.; CLIA# [id number] Nornicotine, ur <2.0 <2.0 ng/mL [facility] Urine 12/30/2024 10:0 5 AM CDT 12/30/2024 11:06 AM CDT Elias Ann MD LAB URINE ORDERABLES Final Resu lt Performing Organization Address [facility] Co de Phone Number [facility] [place] [address] [facility] * (ABNORMAL) Hemoglobin A1c (09/26/2024 3:20 PM SALON MANAGER) Hgb A1C 6.0(H) 4.0 - 5.6 % Comment:Testing performed by : [address] [address] Estimated Average Glucose 126 mg/dL [facility] Comment: The ADA recommends reporting an estimated Average Glucose (eAG) with all Hemoglobin A1c results using the equation derived from a study of 507 normal and diabetic adults. Minority populations were underrepresented and children were not included. (Diabetes Care 31:0642-8363, 2008). The eAG is not equivalent to a fasting glucose. Testing performed by: [address] [address] Blood 09/26/2024 3:20 PM SALON MANAGER 09/26/2024 4:29 PM SALON MANAGER us Art Frias NP LAB BLOOD ORDERABLES Final Result [facility] [address] [facility] Department [place] [address] * Lipid panel (09/26/2024 3:20 PM SALON MANAGER) Cholesterol 150 30 - 199 mg/dL Comment: [...] last revised on 2018. Testing performed by: [address] [address] Triglycerides 72 <=149 mg/dL [facility] Comment: [...] last revised on 2018. Testing performed by: [address] [address] HDL 56 >=40 mg/dL [facility] Comment: Interpretive Data Ages < or = [...] last revised on 2018. Testing performed by: [address] [address] LDL, calculated 80 <=129 mg/dL [facility] Comment: [...] last revised on 2024. Testing performed by: [address] [address] Non-HDL Cholesterol 94 mg/dL [facility] Comment: [...] last revised on 2018. Testing performed by: [facility], [address] [place] [address]., [address] Chol/HDL ratio 3 [facility] Comment:Testing performed by : [facility], [address] [place] [address]., [address] Blood 09/26/2024 3:20 PM SALON MANAGER 09/26/2024 4:28 PM SALON MANAGER Art Frias HELP DESK CONSULTANT LAB BLOOD ORDERABLES Final Result [facility] [address] [facility] Department [place] [address] from Last 3 Months or Most Recently Relevant to Health Maintenance Insurance [facility] Advance Directives For more information, please contact: [phone] * Full Code (Latest Code Status on File) Date Activated Date Inactivated Comments 01/15/2025 9:48 PM 01/16/2025 6:25 PM Care Teams Goods Layer Relationship Specialty Start Date End Date Brandon Bey MD [address] [place] [address] PCP - General Family Medicine 04/10/23
--- OUTSIDE RECORDS SUMMARY | 2025-01-31 10:13 | XMS_ITS | Clinical Summary ---
Author Organization [facility] [employer] Address [address] [facility] [place] [address] Care Team Providers Care Pre Planning Advisor Name Role Phone Liza Singh MD Primary Care Provider [phone] Source Comments [facility] [employer],non-owned Affiliates and Associated Physician Practices is amultiple site organization consisting of ambulatory clinics and hospital sitesin [place], [place], [place] and [place]. This disclosure is being madepursuant to the Care Everywhere program and may not contain all information available regarding this patient. Last updated 18.[facility] [employer] Allergies No known active allergies Medications * [...] patient's age to complete this topic Insurance [facility] MED[facility] [place] Care Teams Pre Planning Advisor Relationship Specialty Start Date End Date Liza Singh MD [address] [place] [phone] PCP - General Family Medicine 07/06/18
--- OUTSIDE RECORDS SUMMARY | 2025-01-31 10:13 | XMS_ITS | Referral Summary ---
Author Organization [facility] [address] Address [address] [place] [address] Care Team Providers Care Engineering Project Manager Name Role Phone Brandon Bey MD Primary Care Provide r Encounters Date Type Department Care Team Description 01/23/2025 1:15 PM CDT Office Visit [facility] Minimally Invasive Surgery [address] Medical Office Building [address] [place] [address] Sheila Telles NP Bariatric surgery status (Primary Dx); Morbid obesity (HCC) 01/21/2025 Telephone [facility] Minimally Invasive Surgery [address] [place] [address] Advanced [facility] 12th Floor, [place] [address] Elias Ann MD Medical Question/Miscellane ous 01/15/2025 10:26 AM CDT - 01/16/2025 2:20 PM CDT Hospital Encounter [facility] 1 [place] [address] Elias Ann MD Morbid (severe) obesity due to excess calories (HCC) [E66.01] (Primary Dx) Discharge Disposition: Discharge to home or self care 01/15/2025 12:55 PM CDT - 01/15/2025 4:45 PM CDT Surgery [facility] Operating Room 1 [place] [address] Elias Ann MD LAPAROSCOPIC GASTRIC BYPASS 01/15/2025 3:06 PM CDT Anesthesia Event [facility] 1 [place] [phone] Estrada Kate MD Nizam, Rasheeq Rahman, MD 01/09/2025 Telephone [facility] Minimally Invasive Surgery [address] [place] [address] Medical Office Building [address] [place] [address] Noah Abel CMA 01/06/2025 Telephone [facility] Minimally Invasive Surgery [address] [place] [address] Medicine 12th Floor, [place] [address] Art Frias NP Medical Question/Miscellane ous 12/31/2024 9:00 AM CDT Clinical Support [facility] Minimally Invasive Surgery [address] [place] [address] Medical Office Building [address] [place] [address] Morbid obesity (HCC) (Primary Dx) 12/30/2024 9:00 AM CDT Pre-Admission Testing [facility] for Preoperative Assessment and Planning [facility] ([facility]) [address] [place] [address] Morbid obesity (HCC) 11/07/2024 10:00 AM STEEL CHECKER Office Visit [facility] Minimally Invasive Surgery [address] [place] [address] Medical Office Building [address] [place] [address] Elias Ann MD Morbid obesity (HCC) (Primary [...] on file Legal Sex Female 10:12 AM STEEL CHECKER Gender Identity Not on file Sexual Orientation [...] on file Medical Devices Implanted Type Area Security Flex Officer Device Identifier Shelf Expiration Date Model / Serial / Lot [employer] Biological Bariatric Peristrip Non Crosslinked Bovine Pericardium For Endo Estee Thin [id number] - Sn/A - [id number] Implanted:Qty: 1 on 01/15/2025 by Elias Ann MD at [facility] Other - see comments N/A: Abdomen [employer] 04/18/2027 [id number] THN / N/A / [id number] Description:Nabila strip [employer] Workflow [employer] Biological Bariatric Peristrip Non Crosslinked Bovine Pericardium For Endo Estee Thin [id number] - Sn/A - [id number] Implanted:Qty: 1 on 01/15/2025 by Elias Ann MD at [facility] Other - see comments N/A: Abdomen [employer] 04/18/2027 [id number] THN / N/A / [id number] Description:Nabila strip Procedures Procedure Name Priority Date/Time [...] (HCC) HEMOGLOBIN A1C Routine 09/26/2024 3:20 PM STEEL CHECKER Morbid obesity (HCC) BMI 50.0-59.9, adult (HCC) LIPID PANEL Routine 09/26/2024 3:20 PM STEEL CHECKER Morbid obesity (HCC) BMI 50.0-59.9, adult (HCC) [...] MD LAB BLOOD ORDERABLES Final Resu lt [facility] One [facility] [place] [address] * (ABNORMAL) CBC without differential (01/16/2025 12:11 AM CDT) WBC 12.05(H) 3.80 - 9.90 K/cumm Hgb 13.8 11.9 - 15.5 g/dL [facility] Hct 41.8 35.6 - 45.5 % [facility] Plt 239 150 - 400 K/cumm [facility] MPV 10.0 9.1 - 12.3 fL [facility] RBC 4.72 3.90 - 5.20 M/cumm [facility] MCV 88.6 81.3 - 96.4 fL [facility] MCH 29.2 27.1 - 33.3 pg [facility] MCHC 33.0 32.3 - 35.7 g/dL [facility] RDW CV 12.9 11.1 - 14.9 % [facility] RDW SD 42.2 35.7 - 48.1 fL [facility] NRBC abs 0.00 0.00 - 0.01 K/cumm [facility] Blood 01/16/2025 12:1 1 AM CDT 01/16/2025 1:19 AM CDT Elias Ann MD LAB BLOOD ORDERABLES Final Resu lt [facility] [place] [address] * Basic metabolic panel (01/16/2025 12:11 AM CDT) [facility] Signature Sodium 136 135 - 145 mmol/L Potassium, pl 4.6 3.3 - 4.9 mmol/L [facility] Comment:Hemolyzed; Potassium value may be falsely elevated by as much as 0.6-1.0 mmol/L. Suggest redraw and reanalysis. Chloride 102 97 - 110 mmol/L [facility] CO2 22 22 - 32 mmol/L [facility] Anion gap 12 2 - 15 mmol/L [facility] BUN 10 6 - 25 mg/dL [facility] Creatinine 0.70 0.60 - 1.10 mg/dL [facility] Glucose 164 70 - 199 mg/dL [facility] Comment: Interpretive Data Fasting glucose >/= 126 [...] 2022. Calcium 8.8 8.5 - 10.3 mg/dL [facility] Blood 01/16/2025 12:1 1 AM CDT 01/16/2025 2:04 AM CDT Elias Ann MD LAB BLOOD ORDERABLES Final Resu lt Performing Organization Address City/Va Hospital/ZIP Co de Phone Number [facility] Department [place] [address] * Nicotine metabolite screen, urine (12/30/2024 10:05 AM CDT) [facility] Nicotine, ur <5.0 <5.0 ng/mL [facility] Cotinine, ur <5.0 <5.0 ng/mL [facility] Anabasine ur <2.0 <2.0 ng/mL [facility] Comment: ADDITIONAL INFORMATION This test was developed and its performance characteristics determined by [facility] in a manner consistent with CLIA requirements. This test has not been cleared or approved by the U.S. Food and Drug Administration. Test Performed by: [facility] [place] [address] Machine Assistant: Juliane Jean Ph.D.; CLIA# [id number] Nornicotine, ur <2.0 <2.0 ng/mL [facility] Urine 12/30/2024 10:0 5 AM CDT 12/30/2024 11:06 AM CDT Elias Ann MD LAB URINE ORDERABLES Final Resu lt Performing Organization Address City/Va Hospital/ZIP Co de Phone Number [facility] Department [place] [address] [facility] ref Lab * (ABNORMAL) Hemoglobin A1c (09/26/2024 3:20 PM STEEL CHECKER) Hgb A1C 6.0(H) 4.0 - 5.6 % Comment:Testing performed by : [address] [address] Estimated Average Glucose 126 mg/dL [facility] Comment: The ADA recommends reporting an estimated Average Glucose (eAG) with all Hemoglobin A1c results using the equation derived from a study of 507 normal and diabetic adults. Minority populations were underrepresented and children were not included. (Diabetes Care 31:7409-9431, 2008). The eAG is not equivalent to a fasting glucose. Testing performed by: [address] [address] Blood 09/26/2024 3:20 PM STEEL CHECKER 09/26/2024 4:29 PM STEEL CHECKER Art Frias INTERIOR DESIGNER LAB BLOOD ORDERABLES Final Result [facility] [address] [facility] Department [place] [address] * Lipid panel (09/26/2024 3:20 PM STEEL CHECKER) [facility] Cholesterol 150 30 - 199 mg/dL [...] last revised on 2018. Testing performed by: [address] [address] Triglycerides 72 <=149 mg/dL [facility] Comment: [...] last revised on 2018. Testing performed by: [address] [address] HDL 56 >=40 mg/dL [facility] Comment: Interpretive [...] last revised on 2018. Testing performed by: [facility], [address] [place] [address]., [address] LDL, calculated 80 <=129 mg/dL [facility] Comment: [...] last revised on 2024. Testing performed by: [address] [address] Non-HDL Cholesterol 94 mg/dL [facility] Comment: [...] last revised on 2018. Testing performed by: [address] [address] Chol/HDL ratio 3 [facility] Comment:Testing performed by : [address] [address] Blood 09/26/2024 3:20 PM STEEL CHECKER 09/26/2024 4:28 PM STEEL CHECKER Art Frias NP LAB BLOOD ORDERABLES Final Result [facility] [address] [facility] Department [place] [address] from Last 3 Months or Most Recently Relevant to Health Maintenance Insurance [facility] Advance Directives For more information, please contact: [phone] * Full Code (Latest Code Status on File) Date Activated Date Inactivated Comments 01/15/2025 9:48 PM 01/16/2025 6:25 PM Care Teams Engineering Project Manager Relationship Specialty Start Date End Date Brandon Bey MD [address] [place] [address] PCP - General Family Medicine 04/10/23
--- OUTSIDE RECORDS SUMMARY | 2025-01-31 10:13 | XMS_ITS | Encounter Summary ---
Author Organization [facility] Address [address] [place] [address] Care Team Providers Care Tile Presser Name Role Phone Liza Singh MD Primary Care Provider [phone] Encounter Details Date Type Department Care Team (Late st Contact Info) Description 03/01/2022 Lab Requisition [facility] Care Pathology Lab [address] [place] [address] Constantin Schwab MD [address] [place] [address] Illness, unspecified Social History Tobacco [...] CDT) Case Report Surgical Pathology Report Case: [id number] Authorizing Provider: Constantin Schwab MD Collected: 02/28/2022 08:15 AM Ordering Location: [facility] Pathology Lab Received: 03/01/2022 01:47 PM Pathologist: Linda Garzon MD Specimen: NasopharynxBiopsy 03/02/2022 5:02 PM CDT [facility] PATHOLOGY LAB Final Diagnosis Nasopharyngeal cyst lesion biopsy: - Fragments of benign lymphoid tissue lined by respiratory-type epithelium - No cyst lining seen 03/02/2022 5:02 PM CDT [facility] PATHOLOGY LAB at 1702 CDT Microscopic Description [...] History Nasopharyngeal cyst? 03/02/2022 5:02 PM CDT [facility] Materials Received Received are three slides and one block (A1) labeled [id number] along with a copy of the outside pathology report. [place] [address]. All original materials are returned to the referring institution, along with a copy of our final report. 03/02/2022 5:02 PM CDT [facility] Disclaimer The performance characteristics of all immunohistochemical and indirect immunofluorescence stains (if any) cited in this report were determined by the Histopathology Laboratory of [facility]. Some of these tests were developed [...] attending (teaching) pathologist. 03/02/2022 5:02 PM CDT [facility] Embedded Images 03/02/2022 5:02 PM CDT [facility] Pathology/Cytolo gy BIOPSY OF NASOPHARYNX / Unknown 02/28/2022 8:15 AM CDT 03/01/2022 1:47 PM CDT Constantin Schwab MD LAB - PATHOLOGY/CYTOLOGY [facility] ROMANO Final Result [facility] [address] [phone] documented in this encounter Visit Diagnoses Diagnosis Illness, unspecified documented in this encounter Care Teams Tile Presser Relationship Specialty Start Date End Date Liza Singh MD [address] [place] [address] PCP - General Family Medicine 07/06/18 documented as of this encounter
--- OUTSIDE RECORDS SUMMARY | 2025-01-31 10:13 | XMS_ITS | Encounter Summary ---
Author Organization [facility] Address [address] [facility] [address] [place] [address] Phone Care Team Providers Care Engineering Department Chair Name Role Phone Brandon Bey MD Primary Care Provide r Encounter Details Date Type Department Care Team (Late st Contact Info) Description 09/17/2024 Telephone [facility] [address] [facility] Floor 5 [place] [address] Art Frias, CHURCH WARDEN [address] [facility] [phone] [place] [address] Social History Tobacco Use Types Packs/Day Years Used Date Smoking Tobacco: Never Assessed Comments Unknown Sex and Gender Information Value Date Recorded Sex Assigned at Not on file 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
--- NOTE | 2025-01-31 11:08 | PC.NURSE ---
CT notified that pt. is ready and a green top is at bedside for them.
[2025-01-31 11:17] LABS: Basophils Percent Auto 0.7 % (0.2-1.2); Eosinophils Absolute Auto 0.2 K/mm3 (0-0.3); Eosinophils Percent Auto 3.1 % (0-4.4); Hematocrit 41.2 % (37.0-47.0); Hemoglobin 13.2 g/dL (12.0-15.0); Immature Granulocyte Absolute 0.01 K/mm3 (0.00-0.031); Immature Granulocyte Percent A 0.2 % (0-0.5); Lymphocytes Absolute Auto 1.78 K/mm3 (0.9-3.2); Lymphocytes Percent Auto 30.4 % (18.3-44.2); Mean Corpuscular Hemoglobin 28.7 pg (26-34); Mean Corpuscular Volume 89.6 fl (80-100); Mean Platelet Volume 9.8 fl (7.4-10.4); Monocytes Absolute Auto 0.7 K/mm3 (0.1-0.6); Monocytes Percent Auto 12.1 % (2.6-8.5); Neutrophils Absolute Auto 3.1 K/mm3 (1.3-6.7); Neutrophils Percent Auto 53.5 % (45.5-73.1); Platelet Count Result 265 k/mm3 (150-375); Red Cell Distribution Width 13.3 % (11.5-14.5); White Blood Count 5.9 K/mm3 (4.5-10.0)
[2025-01-31 11:23] LABS: Alanine Aminotransferase 235 U/L (6-35); Albumin Level 3.9 g/dL (3.5-5.1); Alkaline Phosphatase 83 U/L (38-126); Anion Gap 7 mmol/L (4-12); Aspartate Amino Transferase 358 U/L (14-36); Bilirubin,Total 0.6 mg/dL (0.2-1.3); Blood Urea Nitrogen 5 mg/dL (7-17); Calcium 8.3 mg/dL (8.4-10.2); Carbon Dioxide 28 mmol/L (22-30); Chloride 103 mmol/L (98-107); Estimated CRCL calculation 144 ml/min; Estimated Glomerular Filt Rate > 60; Glucose 119 mg/dL (65-110); Potassium 3.7 mmol/L (3.4-5.0); Sodium 138 mmol/L (137-145)
[2025-01-31 12:37] VITALS: BP 121/64; PULSE 77; RESP 18; O2SAT 100
[2025-01-31 14:16] VITALS: BP 139/63; PULSE 78; RESP 16; O2SAT 99
== END 2025-01-31 14:54 | disposition home or self-care (01) ==
PROVIDERS: Emergency Provider Emergency Medicine; PCP Family Medicine
DX: K59.00 Constipation, unspecified (principal); R74.01 Elevation of levels of liver transaminase levels; E03.9 Hypothyroidism, unspecified; F41.8 Other specified anxiety disorders; E66.01 Morbid (severe) obesity due to excess calories; Z68.42 Body mass index [BMI] 45.0-49.9, adult
CPT/HCPCS: 36415; 74177; 80053; 85025; 99284; Q9967

== ENCOUNTER 2025-07-27 08:13 | Outpatient (CLI) | payer OTHER, SELFPAY ==
[2025-07-27 08:46] LABS: Hematocrit 40.0 % (37.0-47.0); Hemoglobin 13.1 g/dL (12.0-15.0); Immature Granulocyte Percent A 0.1 % (0-0.5); Lymphocytes Absolute Auto 2.57 K/mm3 (0.9-3.2); Mean Corpuscular HGB Conc 32.8 g/dl (32-36); Mean Corpuscular Hemoglobin 29.4 pg (26-34); Mean Corpuscular Volume 89.9 fl (80-100); Nucleated Red Blood Cells Absolute Auto 0.000 K/mm3 (0.0-0.012); Nucleated Red Blood Cells Perc 0.0 % (0.0-0.2); Platelet Count Result 252 k/mm3 (150-375); Red Blood Count 4.45 M/mm3 (4.2-5.4); White Blood Count 6.8 K/mm3 (4.5-10.0)
[2025-07-27 09:06] LABS: Alanine Aminotransferase 24 U/L (6-35); Albumin Level 4.0 g/dL (3.5-5.1); Alkaline Phosphatase 89 U/L (38-126); Anion Gap 5 mmol/L (4-12); Aspartate Amino Transferase 37 U/L (14-36); Bilirubin,Total 0.9 mg/dL (0.2-1.3); Blood Urea Nitrogen 7 mg/dL (7-17); Calcium 8.8 mg/dL (8.4-10.2); Carbon Dioxide 28 mmol/L (22-30); Chloride 102 mmol/L (98-107); Cholesterol 128 mg/dL (0-200); Estimated Glomerular Filt Rate > 60; Glucose 103 mg/dL (65-110); HDL Direct 46 mg/dL; Iron 105 ug/dL (37-170); Potassium 3.8 mmol/L (3.4-5.0); Sodium 135 mmol/L (137-145); Total Protein 7.3 g/dL (6.3-8.2); Triglycerides 76 mg/dL (<150)
[2025-07-27 09:44] LABS: Parathyroid Intact 33.5 pg/mL (14.5-75.2); Thyroid Stimulating Hormone 3.490 uIU/mL (0.465-4.680)
[2025-07-27 09:49] LABS: Ferritin 26.10 ng/mL (6.24-137)
[2025-07-27 10:19] LABS: Vitamin B12 379.0 pg/mL (239-931)
--- OUTSIDE RECORDS SUMMARY | 2025-07-27 10:46 | XMS_ITS | Encounter Summary ---
Author Organization [facility] Address [address] [place] [address] Care Team Providers Care Ballistician Name Role Phone Liza Singh MD Primary Care Provider + [phone] Encounter Details Date Type Department Care Team (Late st Contact Info) Description 03/01/2022 Lab Requisition [facility] Care Pathology Lab [address] [place] [address] Constantin Schwab MD [address] [place] [address] Illness, unspecified Social History Tobacco [...] CDT) Case Report Surgical Pathology Report Case: [id number] Authorizing Provider: Constantin Schwab MD Collected: 02/28/2022 08:15 AM Ordering Location: [facility] Pathology Lab Received: 03/01/2022 01:47 PM Pathologist: Linda Garzon MD Specimen: NasopharynxBiopsy 03/02/2022 5:02 PM CDT [facility] PATHOLOGY LAB Final Diagnosis Nasopharyngeal cyst lesion biopsy: - Fragments of benign lymphoid tissue lined by respiratory-type epithelium - No cyst lining seen 03/02/2022 5:02 PM CDT [facility] PATHOLOGY LAB at 1702 CDT Microscopic Description [...] History Nasopharyngeal cyst? 03/02/2022 5:02 PM CDT [facility] PATHOLOGY LAB Materials Received Received are three slides and one block (A1) labeled [id number] along with a copy of the outside pathology report. [place] [address]. All original materials are returned to the referring institution, along with a copy of our final report. 03/02/2022 5:02 PM CDT [facility] PATHOLOGY [facility] Disclaimer The performance characteristics of all immunohistochemical and indirect immunofluorescence stains (if any) cited in this report were determined by the Histopathology Laboratory of [facility]. Some of these tests were developed by [...] attending (teaching) pathologist. 03/02/2022 5:02 PM CDT [facility] PATHOLOGY LAB Embedded Images 03/02/2022 5:02 PM CDT [facility] PATH[facility]Y LAB Pathology/Cytolo gy BIOPSY OF NASOPHARYNX / Unknown 02/28/2022 8:15 AM CDT 03/01/2022 1:47 PM CDT Constantin Schwab MD LAB - PATHOLOGY/CYTOLOGY [facility]PH ROMANO Final Result [facility] PATHOLOGY LAB [address] [phone] documented in this encounter Visit Diagnoses Diagnosis Illness, unspecified documented in this encounter Care Teams Ballistician Relationship Specialty Start Date End Date Liza Singh MD [address] [place] [phone] PCP - General Family Medicine 07/06/18 documented as of this encounter
--- OUTSIDE RECORDS SUMMARY | 2025-07-27 10:46 | XMS_ITS | Clinical Summary ---
Author Organization [facility] Address [address] [facility] [place] [address] Care Team Providers Care Legal Summer Intern Name Role Phone Liza Singh MD Primary Care Provider + [phone] Source Comments [facility],non-owned Affiliates and Associated Physician Practices is amultiple site organization consisting of ambulatory clinics and hospital sitesin [place], [place], [place] and [place]. This disclosure is being madepursuant to the Care Everywhere program and may not contain all information available regarding this patient. Last updated 18.[facility] Allergies No known active allergies Medications * [...] SCREENING 1979 LIPID TESTING 1979 MAMMOGRAM 1979 HIV SCREENING 1994 HEPATITIS C SCREENING 04/04/1997 DTAP/TDAP/TD VACCINES (1 - Tdap) 1998 HEPATITIS B VACCINE (1 of 3 - 19+ 3-dose series) 1998 Cervical Cancer Screening 2000 PAP SMEAR 2000 PAP with HPV 2009 DEPRESSION SCREENING 09/10/2024 COVID-19 VACCINE (1 - 2024-2 6 season) 2025 INFLUENZA VACCINE (#1) 2025 ZOSTER VACCINE (1 of 2) 2029 [...] patient's age to complete this topic Insurance [facility] MEDICA[facility] - [place] Care Teams Legal Summer Intern Relationship Specialty Start Date End Date Liza Singh MD [address] [place] [phone] PCP - General Family Medicine 07/06/18
--- OUTSIDE RECORDS SUMMARY | 2025-07-27 10:47 | XMS_ITS ---
Author Organization Unknown Address [address] [place] [phone] Phone Care Team Providers Care Fire Protection Specialist Name Role Phone REYNALDO Viveros Attending Unavailable JAS HERNANDEZ Primary Unavailable Social History Type Status Start Date End Date Code Code Syst em Sex Female Hospital Discharge Instructions Should you have any questions prior to discharge, please contact a member of your healthcare team. If you have left the hospital and have any questions, please contact your primary care physician. Reason For Referral No Data Found Plan of Treatment No Data Found Encounters Encounter Diagnosis Start Date Code Code Sys tem Effusion, right hand 06/24/2024 SNOMED- CT Personal Care Team Section Performer Name Performer Role Active Date Inactive Da MARY Monreal PCP - Primary care physician
--- OUTSIDE RECORDS SUMMARY | 2025-07-27 10:47 | XMS_ITS | Clinical Summary ---
Author Organization [facility] Address [address] [place] [address] Care Team Providers Care Sterile Process Tech Name Role Phone Unavailable Primary Care Provider Unavailabl e Social History Tobacco Use Types Packs/Day Years Used Date Smoking Tobacco: Never Assessed Comments Unknown Sex and Gender Information Value Date Recorded Sex Assigned at Not on file Legal Sex Female 7:47 PM CDT Gender Identity Not on file Sexual Orientation Not on file Plan of Treatment Health Maintenance Due Date Last Done Comments Cervical Cancer Screening Pa p Smear (Age 30 to 64) Every 3 Years 1979 Colorectal Cancer Screening Colonoscopy (10 Years) 1979 Annual Physical 1982 Hepatitis C 1997 DTaP, Tdap and Td Vaccines ( 1 - Tdap) 1998 Hepatitis B Vaccines (1 of 3 - 19+ 3-dose series) 1998 Cervical Cancer Screening Pa p with HPV Testing (Age 30 to 64) Every 5 Years 2009 Cervical Cancer Screening with HPV 2009 Mammogram Screening 2019 COVID-19 Vaccine (2024-2 6 season) 2025 Influenza Adult (#1) 2025 Hepatitis A Vaccines Aged Out No long er eligible based on patient's age to complete this topic Meningococcal B Vaccine Aged Out No l onger eligible based on patient's age to complete this topic Meningococcal Vaccine Aged Out No hayden josiah eligible based on patient's age to complete this topic Pneumococcal Vaccine: Pediat rics (0 to 5 Years) and At-Risk Patients (6 to 49 Years) Aged Out No longer eligible b ased on patient's age to complete this topic RSV Immunizations Under 20 Months Aged Out No longer eligible based on patient's age to complete this topic
[2025-07-30 13:09] LABS: Copper, Serum or Plasma 108 ug/dL (80-158)
[2025-08-01 02:08] LABS: Vit. B1, Whole Blood 118.9 nmol/L (66.5-200.0)
== END 2025-07-27 08:14 | disposition home or self-care (01) ==
PROVIDERS: PCP Family Medicine; Visit Provider Nurse Practitioner Adult Health
DX: E03.8 Other specified hypothyroidism (principal); Z98.84 Bariatric surgery status; K90.89 Other intestinal malabsorption; Z68.39 Body mass index [BMI] 39.0-39.9, adult; R74.8 Abnormal levels of other serum enzymes; I10 Essential (primary) hypertension
CPT/HCPCS: 36415; 80053; 80061; 82306; 82525; 82607; 82728; 82746; 83540; 83970; 84425; 84443; 85025

== ENCOUNTER 2025-09-09 09:25 | Outpatient (CLI) | payer OTHER, SELFPAY ==
--- OUTSIDE RECORDS SUMMARY | 2025-09-09 09:30 | XMS_ITS | Encounter Summary ---
Author Organization [facility] Address [address] [facility] [address] [place] [address] Phone Care Team Providers Care Bag Machine Adjuster Name Role Phone Brandon Bey MD Primary Care Provide r Encounter Details Date Type Department Care Team (Late st Contact Info) Description 09/17/2024 Telephone [facility] Medicine Surgery [address] 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
--- OUTSIDE RECORDS SUMMARY | 2025-09-09 09:30 | XMS_ITS | Clinical Summary ---
Author Organization [facility] Address [address] [place] [address] Care Team Providers Care Machine Cage Maker Name Role Phone Unavailable Primary Care Provider [...]
--- OUTSIDE RECORDS SUMMARY | 2025-09-09 09:31 | XMS_ITS | Clinical Summary ---
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 Name Role Phone Brandon Bey MD Primary Care Provide r Allergies Active Allergy Reactions Criticality Noted Date Comments Amoxicillin Vomiting High 01/31/2025 Nausea and vomiting/ GI upset Amoxicillin-Pot Clavulanate Hallucinations High 09/24/2024 Clavulanic Acid Vomiting High 01/31/2025 Latex Swelling,Rash,Bliste rs,R edness High 09/24/2024 With adhesive Tissue Adhesive Other (See comments) Low 01/31/2025 Medications levothyroxine (SYNTHROID) 112 mcg tabletIndicatio ns:hypothyroidi sm Take 1 tablet (112 mcg total) by mouth nightly Active citalopram (CeleXA) 20 mg tabletIndicatio ns:Anxiety with Depression Take 1 tablet (20 mg total) by mouth nightly Active calcium citrate-vitamin D3 200 mg-6.25 mcg (250 unit) tabletIndicatio ns:Hypocalcemia Prevention Take 2 tablets by mouth 3 (three) times a day Start taking post op day 5 540 tablet 3 5 01/01/20 26 Active multivitamin with minerals tablet Take 2 tablets by mouth daily Start taking post op day 5 60 tablet 11 5 01/01/20 26 Active OneLAX bisacodyL 10 mg suppository UNWRAP AND INSERT 1 SUPPOSITORY RECTALLY THREE TIMES DAILY NEEDED FOR CONSTIPATION 5 Active nystatin cream APPLY TOPICALLY TO THE AFFECTED AREA TWICE DAILY 5 Active triamcinolone (KENALOG) 0.1 % cream APPLY THIN LAYER TOPICALLY TO THE AFFECTED AREA TWICE DAILY 5 Active fluticasone propionate (FLONASE) 50 mcg/actuation nasal spray 5 Active ofloxacin (FLOXIN) 0.3 % otic solution INSTILL 5 DROPS INTO RIGHT EAR THREE TIMES DAILY Active tamsulosin (FLOMAX) 0.4 mg extended release capsule Take 1 capsule (0.4 mg total) by mouth daily Active Active Problems Problem Noted Date Diagnosed Date Status post gastric bypass for obesity 5 Resolved Problems Problem Noted Date Diagnosed Date Resolved Date Morbid (severe) obesity due to excess calories 01/15/2025 04/14/2025 Morbid obesity 11/20/2024 04/14/2025 BMI 50.0-59.9, adult 09/24/2024 025 Encounters Date Type Department Care Team Description 08/03/2025 Telephone [facility] Minimally Invasive Surgery [address] [place] [address] [address], [place] [address] Art Frias NP Medical Question/Miscellaneou s 07/21/2025 10:20 AM TUFTING MACHINE FIXER Telemedicine [facility] Minimally Invasive Surgery [address] [facility] Medical Office Building [address] [place] [address] Art Frias NP Bariatric surgery status (Primary Dx); Other specified intestinal malabsorption; BMI 39.0-39.9,adult from Last 3 Months Surgical History Surgery Date Site/Laterality Comments COLONOSCOPY 2006 CHOLECYSTECTOMY 2015 HYSTERECTOMY 2018 Medical History Medical History Date Comments Anxiety 1994 Kidney stone 2023 Morbid obesity (HCC) 1999 Thyroid disease 2008 Delayed emergence from general anesthesia Family History Medical History Relation Name Comments Diabetes Brother Dawit klein Mental illness Brother Dawit klein Cancer Father Dawit klein Diabetes Father Dawit klein Obesity Father Dawit klein Sleep apnea Father Dawit klein Diabetes Father's Sister Rayna bateman Sleep apnea Father's Sister Rayna bateman Obesity Maternal Grandfather Hank Forman Diabetes Maternal Grandmother Alicia forman Miscarriages / Stillbirths Mother's Sister Keiry castellanos Cancer Paternal Grandfather Alejandro klein Obesity Son Steve Phillip Relation Name Status Comments Brother Dawit klein Father Dawit klein Father's Sister Rayna bateman Maternal Grandfather Hank Forman Maternal Grandmother Alicia forman Mother's Sister Keiry padrno Paternal Grandfather Alejandro klein Son Steve Phillip Social History Tobacco Use Types Packs/Day Years [...] on file Legal Sex Female 10:12 AM TUFTING MACHINE FIXER Gender Identity Not on file Sexual Orientation [...] 12:46 PM CDT Height 167.6 cm (5' 6) 01/23/2025 12:46 PM CDT Body Mass Index [...] 1998 Hemoglobin A1C 03/26/2025 09/26/2024 Influenza Vaccine (#1) 2025 Lipid Panel 09/26/2025 09/26/2024 eGFR 01/16/2026 01/16/2025, 09/26/2024 HPV Vaccines Aged Out No longer eligi ble based on patient's age to complete this topic Medical Devices Implanted Type Area Loan Documentation Specialist Device Identifier Shelf Expiration Date Model / Serial / Lot [employer] Biological Bariatric Peristrip Non Crosslinked Bovine Pericardium For Endo Estee Thin [id number] - Sn/A - [id number] Implanted:Qty: 1 on 01/15/2025 by Elias Ann MD at [facility] Other - see comments N/A: Abdomen [employer] 04/18/2027 [id number] THN / N/A / [id number] Description:Nabila strip [employer] Biological Bariatric Peristrip Non Crosslinked Bovine Pericardium For Endo Estee Thin [id number] - Sn/A - [id number] Implanted:Qty: 1 on 01/15/2025 by Elias Ann MD at [facility] Other - see comments N/A: Abdomen [employer] 04/18/2027 [id number] THN / N/A / [id number] Description:Nabila strip Procedures Procedure Name Priority Date/Time Associated Diagnosis Comments EGFR Routine 01/16/2025 12:11 AM CDT HEMOGLOBIN A1C Routine 09/26/2024 3:20 PM TUFTING MACHINE FIXER Morbid obesity (HCC) BMI 50.0-59.9, adult (HCC) LIPID PANEL Routine 09/26/2024 3:20 PM TUFTING MACHINE FIXER Morbid obesity (HCC) BMI 50.0-59.9, adult (HCC) [...] MD LAB BLOOD ORDERABLES Final Resu lt [facility] Department of Laboratories [place], [place] [id number] * (ABNORMAL) Hemoglobin A1c (09/26/2024 3:20 PM TUFTING MACHINE FIXER) Hgb A1C 6.0(H) 4.0 - 5.6 % Comment:Testing performed by : [facility], [address] [place] [address], [place]., [address] Estimated Average Glucose 126 mg/dL [facility] Comment: The ADA recommends reporting an estimated Average Glucose (eAG) with all Hemoglobin A1c results using the equation derived from a study of 507 normal and diabetic adults. Minority populations were underrepresented and children were not included. (Diabetes Care 31:1873-0060, 2008). The eAG is not equivalent to a fasting glucose. Testing performed by: [facility], [address] [place] [address]., [id number] Blood 09/26/2024 3:20 PM TUFTING MACHINE FIXER 09/26/2024 4:29 PM TUFTING MACHINE FIXER us Art Frias NP LAB BLOOD ORDERABLES Final Result [facility] [address] [facility] Department [place] [address] * Lipid panel (09/26/2024 3:20 PM TUFTING MACHINE FIXER) Cholesterol 150 30 - 199 mg/dL Comment: [...] last revised on 2018. Testing performed by: [facility], [address] [place] [address]., [id number] Triglycerides 72 <=149 mg/dL [facility] CUMMINS Comment: [...] last revised on 2018. Testing performed by: [address] [address] HDL 56 >=40 mg/dL K[facility] Comment: Interpretive [...] last revised on 2018. Testing performed by: [address] [address] LDL, calculated 80 <=129 mg/dL [facility] Comment: [...] last revised on 2024. Testing performed by: [address] [address] Non-HDL Cholesterol 94 mg/dL [facility] Comment: Interpretive Data Ages < [...] last revised on 2018. Testing performed by: [address] [address] Chol/HDL ratio 3 [facility] CUMMINS Comment:Testing performed by : [facility], [address] [place] [address]., [id number] Blood 09/26/2024 3:20 PM TUFTING MACHINE FIXER 09/26/2024 4:28 PM TUFTING MACHINE FIXER Art Frias NP LAB BLOOD ORDERABLES Final Result [facility] CUMMINS [address] [facility] Department [place] [address] from Last 3 Months or Most Recently Relevant to Health Maintenance Insurance [facility] Advance Directives For more information, please contact: [phone] * Full Code (Latest Code Status on File) Date Activated Date Inactivated Comments 01/15/2025 9:48 PM 01/16/2025 6:25 PM Care Teams Electrical Electronics Engineers Relationship Specialty Start Date End Date Brandon Bey MD [address] [place] [address] PCP - General Family Medicine 04/10/23
--- OUTSIDE RECORDS SUMMARY | 2025-09-09 09:31 | XMS_ITS ---
Author Organization Unknown Address [address] [place] [phone] Phone Care Team Providers Care [employer] Footballer Name Role Phone REYNALDO Viveros Attending Unavailable [...]
[2025-09-09 09:56] LABS: Hematocrit 42.0 % (35.0-49.0); Hemoglobin 13.5 g/dL (12.0-15.0); Immature Granulocyte Percent A 0.2 % (0.0-0.0); Lymphocytes Absolute Auto 2.35 K/mm3 (1.10-4.50); Mean Corpuscular HGB Conc 32.1 g/dL (32-36); Mean Corpuscular Hemoglobin 29.3 pg (27.0-31.0); Mean Corpuscular Volume 91.3 fL (78.0-102.0); Nucleated Red Blood Cells Absolute Auto 0.00 K/mm3 (0.00-0.00); Nucleated Red Blood Cells Perc 0.0 % (0-0.0); Platelet Count Result 269 K/mm3 (150-420); Red Blood Count 4.60 M/mm3 (4.20-5.40); White Blood Count 5.2 K/mm3 (4.8-10.8)
[2025-09-09 09:58] LABS: Appearance Urine Clear (Clear); Glucose Urine UA Negative (Negative); Leukocyte Esterase Ur Negative (Negative); Nitrate Urine Negative (Negative); Specific Grav Ur 1.025 (1.010-1.020)
[2025-09-09 10:10] LABS: INR 1.0; Prothrombin Time 11.1 Seconds (9.50-12.1)
[2025-09-09 10:30] LABS: Alanine Aminotransferase 20 U/L (6-35); Albumin Level 4.4 g/dL (3.5-5.1); Alkaline Phosphatase 79 U/L (38-126); Amylase 61 U/L (30-110); Anion Gap 10 mmol/L (4-12); Aspartate Amino Transferase 31 U/L (14-36); Bilirubin,Total 0.6 mg/dL (0.2-1.3); Blood Urea Nitrogen 9 mg/dL (7-17); Calcium 9.2 mg/dL (8.4-10.2); Carbon Dioxide 29 mmol/L (22-30); Chloride 105 mmol/L (98-107); Estimated Glomerular Filt Rate > 60; Glucose 105 mg/dL (65-110); Lipase 41 U/L (23-300); Osmolality Calculated 296 mOsm/kg (285-295); Potassium 4.1 mmol/L (3.4-5.0); Sodium 144 mmol/L (137-145); Total Protein 7.5 g/dL (6.3-8.2)
[2025-09-09 10:35] LABS: Add Urine Microscopic? YES
[2025-09-09 13:28] LABS: Partial Thromboplastin Time 27.3 Sec (23.9-30.70)
[2025-09-11 10:53] LABS: Hepatitis B Surface Antigen Negative (Negative)
[2025-09-11 10:59] LABS: HAV RESULT Negative (Negative); Hepatitis B Core IgM Result Negative (Negative)
== END 2025-09-09 09:26 | disposition home or self-care (01) ==
LOC: CHSLAB 09:26
PROVIDERS: PCP Family Medicine; Visit Provider Family Medicine
DX: R10.9 Unspecified abdominal pain (principal); R23.3 Spontaneous ecchymoses; R74.01 Elevation of levels of liver transaminase levels
CPT/HCPCS: 36415; 80053; 80074; 81001; 82150; 82248; 83690; 85025; 85610; 85730